=== PATIENT | female | born 1950 | race Caucasian/White ===

== ENCOUNTER 2016-05-18 16:50 | Emergency (ER) | payer OTHER ==
[~2016-05-18] VITALS: Ht 167.6 cm; Wt 135.2 kg
[~2016-05-18 16:50] MED LIST: ALBUTEROL0.09 MG/A1 INH; ATORVASTATIN CA10 MG PO; HYGROTON 25MG T25 MG PO; LASIX20 MG PO; LASIX40 MG PO; LIPITOR20 MG PO; LISINOPRIL10 MG PO; LOPRESSOR 25MG25 MG PO; LOPRESSOR50 MG PO; METFORMIN HCL500 MG PO; MUCINEX ER600 MG PO; PRINIVIL10 MG PO
[2016-05-18] MEDS ORDERED: METFORMIN HCL500 M4 PO (18:10)
[2016-05-18] MEDS ORDERED: METOPROLOL TART50 M1 PO (18:10)
[2016-05-18] MEDS ORDERED: LISINOPRIL20 M1 PO (18:10)
[2016-05-18] MEDS ORDERED: ATORVASTATIN CA20 M1 PO (18:11)
[2016-05-18] MEDS ORDERED: BREO ELLIPTA 21 EACH INH (18:11)
[2016-05-18] MEDS ORDERED: FUROSEMIDE40 M1 PO (18:12)
[2016-05-18] MEDS ORDERED: HYDROCHLOROTHIA25 M1 PO (18:12)
[2016-05-18] MEDS ORDERED: PROAIR HFA8.5 GM INH (18:12)
[2016-05-18] MEDS ORDERED: PRADAXA150 M1 PO (18:12)
--- NOTE | 2016-05-18 18:13 | RADIOLOGY REPORT ---
EXAMINATION: XR PELVIS CLINICAL INFORMATION: Fall. Left hip pain COMPARISON: None TECHNIQUE: AP view of the pelvis. FINDINGS: No fracture of pelvis or left or right hip. There is degenerative joint disease of the hips bilateral with joint space narrowing spurring of acetabula and femoral heads. Sacroiliac joints are normal. IMPRESSION: No fracture of pelvis or hips. 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
--- NOTE | 2016-05-18 18:15 | RADIOLOGY REPORT ---
EXAMINATION: XR SHOULDER, LEFT CLINICAL INFORMATION: Left shoulder pain following fall. COMPARISON: None. TECHNIQUE: AP external rotation, internal rotation and transscapular Y views of the left shoulder. FINDINGS: The bones and soft tissues are normal. No fracture. Glenohumeral and acromioclavicular alignment is anatomic with normal joint space. No abnormal soft tissue calcifications. IMPRESSION: No acute fracture or dislocation of the left shoulder. The left acromioclavicular joint is intact.
--- NOTE | 2016-05-18 18:34 | ED MVC/FALL/TRAUMA COMPLAINT ---
See Addendum History of Present Illness General Chief Complaint: Fall Stated Complaint: BIBA S/P MECHANICAL FALL Source: patient, EMS Exam Limitations: no limitations Vital Signs & Intake/Output Vital Signs & Intake/Output Vital Signs Date Time Temp Pulse Resp B/P Pulse O2 O2 Flow FiO2 Ox Delivery Rate 05/18 1841 97.5 106 160/80 95 05/18 1659 97.5 101 16 168/112 96 Room Air Allergies Coded Allergies: NO KNOWN ALLERGIES (09/19/12) NKA PER ANTIBIOTIC ORDER SHEET OF 09/20/12 - [facility] Reconcile Medications Albuterol Sulfate (Proair Hfa) 90 MCG HFA.AER.AD 2 PUF INH PRN RESPIRATORY ( Reported) Atorvastatin Calcium 20 MG TABLET 1 TAB PO QPM CHOLESTEROL (Reported) Dabigatran Etexilate Mesylate (Pradaxa 150 MG) 150 MG CAPSULE 1 CAP PO BID BLOOD THINNER (Reported) Fluticasone/Vilanterol (Breo Ellipta 200-25 Mcg INH) 200 MCG-25 MCG/DOSE BLST.W.DEV 1 PUFF INH DAILY RESPIRATORY (Reported) Furosemide 40 MG TABLET 1 TAB PO PRN DIURETIC (Reported) Hydrochlorothiazide 25 MG TABLET 1 TAB PO DAILY DIURETIC (Reported) Lisinopril 20 MG TABLET 1 TAB PO BID BP (Reported) Metformin HCl (Metformin HCl ER) 500 MG TAB.ER.24H 2 TAB PO BID PRE-DIABETIC (Reported) Metoprolol Tartrate (Unknown Strength) TABLET (Unknown Dose) PO BID HEART/BP (Reported) Triage Note: BIBA S/P MECHANICAL FALL. PT WAS ON CHAIR, CHAIR BROKE AND PT FELL. C/O LEFT SIDED PAIN. ABLE TO STAND AND PIVOT FROM EMS STRETCHER TO ED STRETCHER. REPORT TAKEN FROM EMS TO MD. PT HYPERTENSIVE, STATES SHE'S BEEN HYPERTENSIVE TODAY AND HAS NOT TAKEN HER DAILY BP MEDS THIS MORNING Triage Nurses Notes Reviewed? yes HPI: Ms. Johnson is 66 yo female w/ PMH of hypertension hyperlipidemia and diabetes presenting to the emergency department after a fall. Patient states she was visiting her mom at the [facility] and was sitting in a chair when the chair broke. Patient fell down landing on her bottom and then rolled to her left hip and left shoulder. She is endorsing left hip pain as well as left shoulder pain. EMS the patient had limited range of motion of that left shoulder unable to raise it above her head. No tingling or numbness. No weakness bilaterally. Patient denies any head trauma or LOC. (SHE VILLAFANA MD) Past History Travel History Traveled to [place] past 21 day No Medical History Any Pertinent Medical History? 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 No (SHE VILLAFANA MD) Review of Systems Review of Systems Constitutional: Reports: see HPI. Eyes: Reports: no symptoms. Ears, Nose, Throat, Mouth: Reports: no symptoms. Respiratory: Reports: no symptoms. Cardiovascular: Reports: no symptoms. Gastrointestinal/Abdominal: Reports: no symptoms. Genitourinary: Reports: no symptoms. Musculoskeletal: Reports: back pain, joint pain, muscle pain. Denies: neck pain. Skin: Reports: no symptoms. Neurological/Psychological: Reports: no symptoms. All Other Systems: Reviewed and Negative (SHE VILLAFANA MD) Physical Exam Physical Exam General Appearance: well developed/nourished, no apparent distress, alert, awake Head: atraumatic, normal appearance Eyes: Bilateral: normal appearance, PERRL, EOMI, normal inspection. Ears, Nose, Throat, Mouth: hearing grossly normal, moist mucous membrane Neck: normal inspection, supple, full range of motion Respiratory: normal breath sounds, chest non-tender, no respiratory distress Cardiovascular: regular rate/rhythm Gastrointestinal: normal bowel sounds, soft, non-tender Back: normal inspection, normal range of motion Extremities: normal range of motion, tenderness to palpation over the left hip. No pelvic instability, tenderness to palpation over superior portion of shoulder. No obvious deformity or dislocation Neurologic/Psych: no motor/sensory deficits, awake, alert, oriented x 3, normal gait, normal mood/affect Skin: intact, normal color, warm/dry Core Measures ACS in differential dx? No Severe Sepsis Present: No Septic Shock Present: No (SHE VILLAFANA MD) Progress Differential Diagnosis: ICH, pelvis injury, fracture dislocation Plan of Care: Patient is a 66-year-old female, well appearing in no distress. Fall from chair. Low mechanism. No head trauma or LOC. Patient endorsing some mild tenderness to palpation of the left hip as well as left. No obvious signs of deformity. Normal range of motion and strength bilaterally of both upper and lower extremities. Basic x-rays to assess for fracture, but unlikely. Head trauma or LOC as well as normal neuro exam highly unlikely patient has intercranial hemorrhage. CT is not indicated at this point in time. He shouldn 't took Advil 400 mg prior to arrival. X-rays are negative. We'll have her continue taking Motrin or Tylenol for the pain and follow-up with her doctor as needed. Patient ambulated out of the ED without difficulties. (SHE VILLAFANA MD) Departure Departure Time of Disposition: 1841 Disposition: HOME OR SELF CARE Condition: Stable Clinical Impression Primary Impression: Fall Qualifiers: Encounter type: initial encounter Qualified Code: W19.XXXA - Unspecified fall, initial encounter Secondary Impressions: Left hip pain Left shoulder pain Qualifiers: Chronicity: acute Qualified Code: M25.512 - Pain in left shoulder Referrals: JUAN CARLOS KIMBALL,TAWANNA Carvalho (PCP/Family) Additional Instructions: Please follow-up with your primary care doctor as needed. You should take Tylenol or Motrin for the pain. Departure Forms: Customer Survey General Discharge Information (SHE VILLAFANA MD) PA/CLAIM AUDITOR Co-Sign Statement Statement: ED Attending supervision documentation- [] I saw and evaluated the patient. I have also reviewed all the pertinent lab results and diagnostic results. I agree with the findings and the plan of care as documented in the PA's/CLAIM AUDITOR's documentation. [X] I have reviewed the ED Record and agree with the PA's/CLAIM AUDITOR's documentation. [] Additions or exceptions (if any) to the PAs/CLAIM AUDITOR's note and plan are summarized below: [] (DARIELA VALDEZ DO
[2016-05-18 18:41] VITALS: BP 160/80
== END 2016-05-18 18:46 ==
LOC: ERH 16:50
DX: M25.552 Pain in left hip (principal); M25.512 Pain in left shoulder
CPT/HCPCS: 72170; 73030-LT

== ENCOUNTER 2017-05-20 15:11 | Inpatient (IN) | payer OTHER ==
[~2017-05-20] VITALS: Ht 167.6 cm; Wt 138.5 kg
[~2017-05-20 15:11] MED LIST changes: +ATORVASTATIN CA20 M1 PO; +FUROSEMIDE40 M1 PO; +HYDROCHLOROTHIA25 M1 PO; +LISINOPRIL20 M1 PO; +METFORMIN HCL500 M4 PO; +METOPROLOL TART50 M1 PO; +PRADAXA150 M1 PO; +PROAIR HFA8.5 GM INH
[2017-05-20 16:28] LABS: ABSOLUTE BASOPHIL COUNT 0 /CUMM (0.0-0.2); ABSOLUTE EOSINOPHIL COUNT 0.1 /CUMM (0.0-0.7); ABSOLUTE GRANULOCYTE CT 5.7 /CUMM (1.4-6.5); ABSOLUTE LYMPH COUNT 0.9 /CUMM (1.2-3.4); ABSOLUTE MONOCYTE COUNT 0.6 /CUMM (0.10-0.60); BASOPHIL % 0.2 % (0.0-2.0); EOSINOPHIL % 1.6 % (0-5); GRANULOCYTE % 77.1 % (42.2-75.2); HEMATOCRIT 40.6 % (37-47); MEAN CORPUSCULAR HGB 25.9 PG (27.0-31.0); MEAN CORPUSCULAR HGB CONC 31.4 G/DL (33.0-37.0); MEAN CORPUSCULAR VOLUME 82.6 FL (81.0-99.0); MEAN PLATELET VOLUME 7.7 FL (7.4-10.4); PLATELET COUNT 278 /CUMM (130-400); RED BLOOD CELL CT 4.92 /CUMM (4.20-5.40); WHITE BLOOD CELL COUNT 7.3 /CUMM (4.8-10.8)
--- NOTE | 2017-05-20 16:33 | RADIOLOGY REPORT ---
EXAMINATION: XR PORTABLE CHEST CLINICAL INFORMATION: Shortness of breath COMPARISON: 11/30/2014 CT scan TECHNIQUE: Portable frontal view of the chest was obtained. FINDINGS: Suboptimal exam due to portable x-ray and patient's body habitus. There is moderate cardiomegaly. Pulmonary venous congestion also noted. Mild increased interstitial markings in the lower lungs can represent interstitial edema. Evaluation for pleural effusion is limited. IMPRESSION: Cardiomegaly, pulmonary venous congestion and interstitial edema in lower lungs.
[2017-05-20 16:38] LABS: PT 14.1 SEC (9.4-12.5); PTT 34 SEC (25-37)
--- NOTE | 2017-05-20 16:38 | ED GENERAL ADULT ---
History of Present Illness General Chief Complaint: Laceration Procedure Stated Complaint: BIBA FOR UNCONTROLLABLE BLEEDING R FOOT Source: patient, family Exam Limitations: no limitations Allergies Coded Allergies: NO KNOWN ALLERGIES (09/19/12) NKA PER ANTIBIOTIC ORDER SHEET OF 09/20/12 - [facility] Triage Note: PT TO ED BY AMBULANCE S/P SUSTAINING LAC TO DORSAL ASPECT OF RIGHT FOOT. PT STATES SHE WAS A USING A HOME PEDICURE "[facility]HELLE" AND CREATED A "PINPRICK" SIZE LAC THAT BEGAN SPURTING BLOOD FOR APPROX 5 MINUTES. PT TAKES PRADAXA Triage Nurses Notes Reviewed? yes Onset: Abrupt Duration: day(s): (1), constant, continues in ED, getting worse Timing: single episode today Injury Environment: home Severity: moderate, severe No Modifying Factors: none LMP (ages 10-50): unknown : No Patient currently breastfeeds: No HPI: 67-year-old female past medical history of atrial fibrillation on PRADAXA, obesity, hypertension, diabetes mellitus for evaluation of a bleeding right foot wound. Patient states that she was removing a callus from her foot with a callous michelle when she went over a superficial vein causing it to bleed. She was unable stop the bleeding so she called 911. She is taking anticoagulants. No dizziness or lightheadedness no chest pain. Patient does know that she has had shortness of breath over the past several weeks worse on exertion. When she walks she feels like she also gets dizzy and lightheaded. No chest pain hemoptysis. She also notes some lower extremity edema bilaterally. She does take 40 mg of Lasix daily at home. She also notes sometimes any shortness of breath while talking.no fevers. Nausea vomiting diarrhea and no abdominal pain. (Tomas SALGADO,Vance) Vital Signs & Intake/Output Vital Signs & Intake/Output Vital Signs Date Time Temp Pulse Resp B/P B/P Pulse O2 O2 Flow FiO2 Mean Ox Delivery Rate 05/20 1734 97.7 96 18 115/85 98 Room Air 05/20 1517 97.6 112 20 145/108 96 Room Air Reconcile Medications Albuterol Sulfate (Proair Hfa) 90 MCG HFA.AER.AD 2 PUF INH PRN RESPIRATORY ( Reported) Atorvastatin Calcium 20 MG TABLET 1 TAB PO QPM CHOLESTEROL (Reported) Ciclopirox Olamine (Ciclopirox) 0.77 % CREAM..G. 1 OLGA TOP BID SKIN (Reported ) apply to affected area(s) Dabigatran Etexilate Mesylate (Pradaxa 150 MG) 150 MG CAPSULE 1 CAP PO BID BLOOD THINNER (Reported) Fluticasone/Vilanterol (Breo Ellipta 200-25 Mcg INH) 200 MCG-25 MCG/DOSE BLST.W.DEV 1 PUFF INH DAILY RESPIRATORY (Reported) Furosemide 40 MG TABLET 1 TAB PO PRN DIURETIC (Reported) Hydrochlorothiazide 25 MG TABLET 1 TAB PO DAILY DIURETIC (Reported) Hydrocortisone 2.5 % CREAM..G. 1 OLGA TOP BID ITCHING (Reported) apply to affected area(s) Lisinopril 20 MG TABLET 1 TAB PO BID BP (Reported) Metformin HCl (Metformin HCl ER) 500 MG TAB.ER.24H 2 TAB PO BID PRE-DIABETIC (Reported) Metoprolol Tartrate (Unknown Strength) TABLET (Unknown Dose) PO BID HEART/BP (Reported) Mv-Min/Vit C/Glu/Guadalupe HCl/Hc124 (Airborne Effervescent Tablet) 1,000 MG-50 MG TABLET.EFF 1 TAB PO DAILY SUPPLEMENT (Reported) Sodium Fluoride (Sf 5000 Plus) 1.1 % CREAM..G. 1 OLGA PO BID TEETH (Reported) (Radha KIMBALL,Jarvis Aldana) Past History Travel History Traveled to [place] past 21 day No Medical History Any Pertinent Medical History? 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 No (Vance Watson) Review of Systems Review of Systems Constitutional: Reports: no symptoms. EENTM: Reports: no symptoms. Respiratory: Reports: see HPI, short of breath. Cardiovascular: Reports: peripheral edema. GI: Reports: no symptoms. Genitourinary: Reports: no symptoms. Musculoskeletal: Reports: no symptoms. Skin: Reports: no symptoms. Neurological/Psychological: Reports: no symptoms. Hematologic/Endocrine: Reports: no symptoms. Immunologic/Allergic: Reports: no symptoms. All Other Systems: Reviewed and Negative (Vance Watson) Physical Exam Physical Exam General Appearance: well developed/nourished, no apparent distress, alert, awake , obese Head: atraumatic, normal appearance Eyes: Bilateral: normal appearance, PERRL, EOMI. Ears, Nose, Throat: normal pharynx, normal ENT inspection, hearing grossly normal Neck: normal inspection, supple, full range of motion Respiratory: normal breath sounds, chest non-tender, no respiratory distress, lungs clear Cardiovascular: regular rate/rhythm, normal peripheral pulses Peripheral Pulses: 2+ radial (R), 2+ radial (L) Gastrointestinal: soft, non-tender Back: normal inspection, normal range of motion, no vertebral tenderness Extremities: there is bilateral nonpitting lower extremity edema. On the right lower extremity there are multiple ulcerated wounds with some surrounding erythema and warmth. No focal fluctuant areas or discharge. No tenderness to palpation., the right lower foot has a pinhole size laceration over the dorsum small amount of active bleeding. No hematoma Neurologic/Psych: no motor/sensory deficits, awake, alert, oriented x 3, normal gait (becomes dyspneic) Skin: intact, normal color, warm/dry Lymphatic: no anterior cervical rashmi Core Measures ACS in differential dx? No CVA/TIA Diagnosis: No Sepsis Present: No Sepsis Focused Exam Completed? No (Vance Watson) Progress Differential Diagnoses I considered the following diagnoses in my evaluation of the patient: [CHF exacerbation, PE, COPD exacerbation, acute coronary syndrome, pneumonia, coagulopathy] Diagnostic Imaging: Viewed by Me: Radiology Read. Discussed w/RAD: Radiology Read. CXR Impression: PATIENT: NISREEN MIRANDA PRESENT AGE: 67 PATIENT ACCOUNT NO: [id number] : 52 LOCATION: [facility] ORDERING PHYSICIAN: Vance SALGADO SERVICE DATE: 05/20/17-4170 EXAM TYPE: RAD - XRY-PORTABLE CHEST XRAY EXAMINATION: XR PORTABLE CHEST CLINICAL INFORMATION: Shortness of breath COMPARISON: 11/30/2014 CT scan TECHNIQUE: Portable frontal view of the chest was obtained. FINDINGS: Suboptimal exam due to portable x-ray and patient' s body habitus. There is moderate cardiomegaly. Pulmonary venous congestion also noted. Mild increased interstitial markings in the lower lungs can represent interstitial edema. Evaluation for pleural effusion is limited. IMPRESSION: Cardiomegaly, pulmonary venous congestion and interstitial edema in lower lungs. DICTATED BY: Nila Lyons MD DATE/TIME DICTATED:05/20/171627 LAND SURVEY TECHNICIAN:ESPERANZA DATE/TIME TRANSCRIBED:05/20/171627 CONFIDENTIAL, DO NOT COPY WITHOUT APPROPRIATE AUTHORIZATION. <Electronically signed in Other Vendor System> SIGNED BY: Nila Lyons MD 05/20/17 1633 Initial ED EKG: AFIB (RATE 108), nonspecific T-wave out of maladies lateral leads, poor (prolonged QT right ventricular hypertrophy (Tomas SALGADO,Vance) Plan of Care: Orders Procedure Date/time Status Consistent Carbohydrate 2 05/21 B Active OXYGEN SETUP (GEN) 05/20 1949 Active Saline Lock 05/20 1949 Active Admit to inpatient 05/20 1950 Active Vital Signs 05/20 1950 Active Activity/Ambulation 05/20 1949 Active Code Status 05/20 1950 Active Villalobos, Insertion/Removal/Asses 05/20 181 Active CULTURE,URINE 05/20 1812 Active Add-on Test (ER Only) 05/20 1802 Active Add-on Test (ER Only) 05/20 1638 Active D-DIMER 05/20 1616 Complete B-TYPE NATRIURETIC PEP (BNP) 05/20 1616 Complete TROPONIN LEVEL 05/20 1558 Complete PARTIAL THROMBOPLASTIN TIME 05/20 1558 Complete PROTHROMBIN TIME 05/20 1558 Complete COMPREHENSIVE METABOLIC PANEL 05/20 1558 Complete CBC WITHOUT DIFFERENTIAL 05/20 1558 Complete EKG 05/20 1558 Active Laboratory Tests 05/20/17 1616: Anion Gap 9, Estimated GFR > 60, BUN/Creatinine Ratio 16.7, Glucose 105 H, Calcium 9.3, Total Bilirubin 0.8, AST 18, ALT 28, Alkaline Phosphatase 79, Troponin I < 0.01, Fmn-S-Ruylwtsyckh Pept 1900 H, Total Protein 7.2, Albumin 3.7, Globulin 3.5, Albumin/Globulin Ratio 1.1, PT 14.1 H, INR 1.29 H, APTT 34, D-Dimer High Sensitivty 261 H, CBC w Diff NO MAN DIFF REQ, RBC 4.92, MCV 82.6, MCH 25.9 L, MCHC 31.4 L, RDW 18.0 H, MPV 7.7, Gran % 77.1 H, Lymphocytes % 12.4 L, Monocytes % 8.7, Eosinophils % 1.6, Basophils % 0.2, Absolute Granulocytes 5.7, Absolute Lymphocytes 0.9 L, Absolute Monocytes 0.6, Absolute Eosinophils 0.1, Absolute Basophils 0 Microbiology 05/20 1928 URINE ROUT: Urine Culture - RECD Patient seen and evaluated. She was coming in with a complaint of a uncontrolled bleeding right foot wound. She does have a pinprick size small laceration to the dorsum of the foot. Bleeding was controlled with Surgicel and pressure dressing. Patient appears dyspneic while talking. No signs of cyanosis or hypoxia at rest. She does not require oxygen. Basic labs EKG chest x-ray obtained patient has a slight tachycardia in the 1 teens additionally she has some interstitial edema and vascular congestion and an elevated BNP. Suspect this may be a CHF exacerbation. 60 mg of Lasix ordered a d-dimer added on. She was ambulated in the emergency department and became visibly dyspneic. She desaturated to 85% on room air. She normalizes at rest. She will require admission to the hospital for further evaluation and treatment. D-dimer is negative. (Vance Watson) (Radha KIMBALL,Jarvis Aldana) Departure Departure Disposition: STILL A PATIENT Condition: Stable Clinical Impression Primary Impression: CHF (congestive heart failure) Qualifiers: Heart failure type: unspecified Heart failure chronicity: acute Qualified Code: I50.9 - Heart failure, unspecified Referrals: Prashanth KIMBALL,Wolf Carvalho (PCP/Family) Departure Forms: Customer Survey General Discharge Information Admission Note Spoke With: Los KIMBALL,Joyce Documentation of Exam: Documentation of any treatments & extenuating circumstances including Concerns Regarding Discharge (functional status, medication knowledge or non-compliance, living conditions, etc.) that warrant an admission rather than observation: [ Patient desaturated to 85% on room air while ambulating. She'll require IV diuresis, serial labs, echocardiogram, cardiology consult, telemetry, serial EKGs, medication adjustment] (Vance Watson) PA/PROCEDURES TECH Co-Sign Statement Statement: ED Attending supervision documentation- [X] I saw and evaluated the patient. I have also reviewed all the pertinent lab results and diagnostic results. I agree with the findings and the plan of care as documented in the PA's/PROCEDURES TECH's documentation. Patient presents for evaluation of uncontrolled bleeding as a result of an accidental injury. During emergency department stay was noted patient appeared dyspneic on exertion. Physical examination reveals a comfortable appearing woman (while at rest) in no acute respiratory distress. No active bleeding from patient's wound. [] I have reviewed the ED Record and agree with the PA's/PROCEDURES TECH's documentation. [] Additions or exceptions (if any) to the PAs/PROCEDURES TECH's note and plan are summarized below: [] (Radha KIMBALL,Jarvis Aldana) Critical Care Note Critical Care Note Critical Care Time: non-applicable (Vance Watson)
[2017-05-20] MEDS ORDERED: HYDROCORTISO453.6 G2 TOP (18:15)
[2017-05-20] MEDS ORDERED: CICLOPIROX15 GM TOP (18:16)
[2017-05-20] MEDS ORDERED: SF 5000 PLUS51 GM PO (18:16)
[2017-05-20] MEDS ORDERED: AIRBORNE EFFER1 EACH PO (18:19)
--- NOTE | 2017-05-20 19:59 | History & Physical ---
Brendon KIMBALL,[facility] 05/20/171957: General Information and HPI MD Statement: I have seen and personally examined NISREEN JOHNSON and documented this H&P. The patient is a 67 year old F who presented with a patient stated chief complaint of [increased bleeding from the right foot]. Source of Information: patient, family Exam Limitations: no limitations History of Present Illness: 67 yo F with PMH of A.fib on Pradaxa, DM, MUSHTAQ, hypertension presented to the ED with complains of bleeding from her right foot. According to the patient, earlier this afternoon she was removing a callus from her right foot using a callous jewelry designer and accidentally nicked a vein in her foot resulting in profuse bleeding. She tried some baby wipes to control the bleeding but was unsuccessful and hence she called 911 and was brought to the ED. In the ED the patient was found to have desaturated in the 80s with ambulation. The patient states that she has a baseline shortness of breath for many years now. She experiences exertional shortness of breath while dressing or walking to the bathroom from her bed. Per brother her symptoms have significantly worsened especially in the past two months. Has gained around 15-20lbs over the past 3 months. States she takes Lasix when she's home but skips it when she has to go outside. The patient also mentions that she was diagnosed with MUSHTAQ 5 years ago in [place] and again two years ago by Dr Maher in [place]. She does not use CPAP due to some insurance issues. Follows Dr Sahu (cardiology). Last saw him around 6 weeks ago and HCTZ was added for LLE. Allergies/Medications Allergies: Coded Allergies: NO KNOWN ALLERGIES (09/19/12) NKA PER ANTIBIOTIC ORDER SHEET OF 09/20/12 - [facility] Home Med list Albuterol Sulfate (Proair Hfa) 90 MCG HFA.AER.AD 2 PUF INH PRN RESPIRATORY ( Reported) Atorvastatin Calcium 20 MG TABLET 1 TAB PO QPM CHOLESTEROL (Reported) Ciclopirox Olamine (Ciclopirox) 0.77 % CREAM..G. 1 OLGA TOP BID SKIN (Reported ) apply to affected area(s) Dabigatran Etexilate Mesylate (Pradaxa 150 MG) 150 MG CAPSULE 1 CAP PO BID BLOOD THINNER (Reported) Furosemide 40 MG TABLET 1 TAB PO PRN DIURETIC (Reported) Hydrochlorothiazide 25 MG TABLET 1 TAB PO DAILY DIURETIC (Reported) Hydrocortisone 2.5 % CREAM..G. 1 OLGA TOP BID ITCHING (Reported) apply to affected area(s) Lisinopril 20 MG TABLET 1 TAB PO BID BP (Reported) Metformin HCl (Metformin HCl ER) 500 MG TAB.ER.24H 2 TAB PO BID PRE-DIABETIC (Reported) Metoprolol Tartrate (Unknown Strength) TABLET (Unknown Dose) PO BID HEART/BP (Reported) Mv-Min/Vit C/Glu/Guadalupe HCl/Hc124 (Airborne Effervescent Tablet) 1,000 MG-50 MG TABLET.EFF 1 TAB PO DAILY SUPPLEMENT (Reported) Sodium Fluoride (Sf 5000 Plus) 1.1 % CREAM..G. 1 OLGA PO BID TEETH (Reported) Past History Travel History Traveled to [place] past 21 day No Medical History Neurological: NONE EENT: NONE Cardiovascular: hypertension, ELEVATED CHOLESTEROL Respiratory: NONE Gastrointestinal: NONE Hepatic: NONE Renal: NONE Musculoskeletal: NONE Psychiatric: NONE Endocrine: diabetes Blood Disorders: NONE Cancer(s): NONE SLIPMAN/Reproductive: NONE History of MRSA: No History of VRE: No History of CDIFF: No Surgical History Surgical History: sinus surgery, Lasix eye surgery Past Family/Social History Family History Relations & Conditions if any MOTHER Cardiac edema Psychosocial History Primary Language: Lithuanian ETOH Use: denies use Illicit Drug Use: denies illicit drug use Review of Systems Review of Systems Constitutional: Reports: chills. Denies: fever. EENTM: Reports: no symptoms. Cardiovascular: Reports: peripheral edema. Denies: chest pain, palpitations. Respiratory: Reports: cough, short of breath, wheezing. GI: Reports: constipation. Denies: abdominal pain. Genitourinary: Reports: no symptoms. Musculoskeletal: Denies: joint pain. Skin: Reports: no symptoms. Neurological/Psychological: Reports: no symptoms. Hematologic/Endocrine: Reports: no symptoms. Exam & Diagnostic Data Last 24 Hrs of Vital Signs/I&O Vital Signs Date Time Temp Pulse Resp B/P B/P Pulse O2 O2 Flow FiO2 Mean Ox Delivery Rate 05/20 1734 97.7 96 18 115/85 98 Room Air 05/20 1517 97.6 112 20 145/108 96 Room Air Intake & Output 05/20 1600 05/20 0800 05/20 0000 Intake Total Output Total Balance Patient 320 lb Weight Weight Reported by Patient Measurement Method Physical Exam General Appearance Alert, Oriented X3, Cooperative, No Acute Distress Skin rash under breasts, wounds on legs. Skin Temp/Moisture Exam: Warm/Dry Sepsis Skin Exam (color): Normal for Ethnicity HEENT Atraumatic Cardiovascular Normal S1, Normal S2, No Murmurs, elevated JVD Lungs Normal Air Movement Abdomen Soft, No Tenderness Neurological Normal Speech Extremities b/l lower extremity edema, erythema Diagnostic Data EKG Results A.jailyn, rate 108, QTc 494, no ST segment changes, narrow QRS, no pathological Q waves. CXR Results Cardiomegaly, pulmonary venous congestion and interstitial edema in lower lungs. Assessment/Plan Assessment: 67 yo F with PMH of Ambrocio on Pradaxa, DM, MUSHTAQ presented to the ED with complains of increased bleeding from her foot. Assessment: 1. Acute CHF Exacerbation 2. Lower Extremity Edema 3. History of MUSHTAQ non compliant on CPAP 4. Prolonged QTc of 494 5. History of A.fib on Pradaxa 6. History of Diabetes Plan: * Admit to telemetry * Diuresis with IV Lasix 40mg daily for now. * Strict I's and O's. * Oxygen supplementation if needed. * TRC/nebs as needed. Currently refuses to be on the CPAP * Cardiology consult * r/o ACS with serial trops and EKGs * Echocardiogram to assess LVEF and for cardiomyopathy * ABG to assess for hypercarbia * Avoid QTc prolonging agents. * Check TSH, FT4. Patient complains of cold intolerance, weight gain and increased somnolence. * Wound consult * Continue all home meds except metformin. She can continue her home antifungals for her tinea infection present under breast. Our pharmacy does not have Cicloporix currently and this has been substituted with ketoconazole cream. * She has had two sleep studies in the past. Obtain most recent pulm records from Dr Maher in [place]. * Insulin SS with Accucheks. * PT eval * Diet: Heart Healthy. Patient has requested for a nutrition consult * DVT Prophylaxis: On Pradaxa * Code: Full Code As Ranked By This Provider Problem List: 1. CHF (congestive heart failure) Qualifiers Heart failure type: unspecified Heart failure chronicity: acute Qualified Code: I50.9 - Heart failure, unspecified Core Measures/Misc (10/22) Acute Coronary Syndrome ACS Diagnosis: No Congestive Heart Failure Congestive Heart Failure Diagnosis Yes Last Known EF % 45 Cerebrovascular Accident CVA/TIA Diagnosis: No VTE (View Protocol) VTE Risk Factors Age>40 No Mechanical VTE Prophylaxis d/t N/A MechProphylax Ordered No VTE Pharm Prophylaxis d/t NA PharmProphylax ordered Sepsis (View protocol) Sepsis Present: No BenjaminAfaf 05/20/17 2220: Resident Review Statement Resident Statement: examined this patient, discussed with grad intern, agreed with grad intern, discussed with family, reviewed EMR data (avail), discussed with nursing , discussed with case mgmt, reviewed images Other Findings: Mrs. Johnson is a 67 yo morbidly obese lady with PMHx. of A.fib on Pradaxa, obesity , HTN, DM, MUSHTAQ noncomplaint with cPAP, presented to ED with a c/o right foot laceration and a concern of worsening SOB. Detailed Hx. as above On examination she was noted to be in moderate distress, couldn't complete whole sentence +ve JVP Heart: Irregular pulse, S1, S2 no added sound appreciated Lung: It's difficult to hear given her body habit, no wheezing was appreciated, decrease air entry B/L Extrimities: B/L LE skin changes (Discoloration, old skin opening), +3 pitting edema, pulse intact Right toes: covered with clean guaz Skin: Redness under both breast Labs pertinent for: Na: 148, Co2: 31, Glucose: 105, pro-BNP: 1900 Trops negative. D-dimer: 261 CXR: CARDIOMEGALLY, PULMONARY VENOUS CONGESTION AND INTERSTITIAL EDEMA IN LOWER LUNG Assessment: #CHF exacerbation #MUSHTAQ not complaint with cPAP #A.fib on Pradaxa #Pulmonary HTN #Skin fungal infection #?LE venous insufficeincy #Right foot laceration #Hx. of HTN, DM Plan: * Will admitt the patient to telemetry floor * Will continue Lasix 40mg daily from tomorrow (She already received 60mg IV at ED) * Will trend EKG/Troponin * Cardiology consult with Dr. Sahu group * Pulmonoloy consult * TRC/Nebs * Will check ABG * Insulin sliding scale/ Accucheck * [facility] * Pulmonology consult * Wound consult * Nutrition consult (Patient request) * Will continue her home medications (Lisinopril, metoprolol tetrate, Hctz, Atorvastatin) DVT ppx: PRADAXA Full code Los KIMBALL, [facility] 05/20/17 2240: Attending MD Review Statement Attending Statement Attending MD Statement: examined this patient, discuss w/resident/PA/SECOND FACING BASTER, agreed w/resident/PA/SECOND FACING BASTER, discussed with family, reviewed images, amended to note Attending Assessment/Plan: 67 yo morbidly obese F with h/o HTN, T2DM, Afib on Pradaxa, chronic HfrEF, MUSHTAQ noncompliant with CPAP, ?asthma, presented to the ER for evaluation of bleeding from the dorsum of her foot after she tried to use a callus michelle. In the ER, bleeding was controlled with surgicel and pressure dressing. However, patient was notably dyspneic and dropped her sats to 88% on RA on ambulation, hence further evaluation was done. Patient has chronic baseline dyspnea, but according to family, dyspnea has gradually progressed over past 3-6 months, worse on exertion (taking few steps at home) and even during a normal conversation. Patient reports orthopnea and PND. She denies cough, fever, chills, chest pain or palpitations. Patient is noncompliant with lasix, has not taken it for over 2 weeks. She takes it only if she stays home and has no commitments of going out as she has to urinate frequently if she takes the lasix. She reports weight gain of 15 lbs over 3 months, appetite is good, drinks a lot of diet soda and ice tea. Reports urinating less than usual. She has chronic lower extremity edema and this has increased, along with increase in abdominal girth. Patient does not follow up at a CHF clinic. She follows with Dr. Sahu (Cardio). Please note, patient is on HCTZ (as per PCP) and Lasix (as per Cardio) both are not new meds for the patient. She is supposed to use her CPAP machine but is unable to tolerate it and machine was pricey despite insurance so she stopped using it. She was seeing Dr. Cox (Pulm at [place]) who diagnosed her with asthma but patient did not follow up since. Vitals: afebrile, HR 90-110's, BP 143/96, sats 96% RA --> 88% RA on ambulation, 87-88% RA while sleeping placed on 2L. Exam: morbidly obese, moderate respiratory distress, unable to complete sentence , using accessory muscles, MMM, JVD+, Chest b/l reduced air entry and few left basilar crackles, no wheeze or rhonchi, Heart S1S2 irregularly irregular, systolic murmur+, Abd soft, diffuse lower abdominal wall edema, non tender. LE: b/l 3++ pitting pedal edema extending up into the thigh and abdomen, chronic venous stasis skin changes with chronic wounds, no evidence of cellulitis. Peripheral pulse+. Fungal rash noted under bilateral breasts (right side is healing, left side is active and erythematous). Labs: no leukocytosis, D-dimer 261, Na 148, bicarb 31, glucose 105, trop neg, proBNP 1900, TSH and free T4 normal. CXR: cardiomegaly, pulmonary venous congestion and interstitial edema in lower lungs. EKG: afib @ 108, Qtc 494. Echo (2014): EF 45-50%, mild left ventricular dilatation, mild to moderate MR, mild TR, RVSP 49 mmHg. Assessment and plan: 1. Acute hypoxic respiratory failure seems multifactorial from a combination of heart failure, pulmonary hypertension, sleep apnea and possible OHS. 2. Acute exacerbation of chronic HfrEF 2/2 medication and dietary noncompliance 3. MUSHTAQ noncompliant with CPAP 4. Pulmonary hypertension, mild to moderate mitral regurgitation 5. Possible underlying Obesity hypoventilation syndrome 6. Chronic Afib on pradaxa 7. Traumatic bleeding while on anticoagulants bleeding controlled 8. Type 2 diabetes and essential hypertension - Admit to Telemetry - TRC nebs - Daily weights - Strict I/O's, hopkins placed in ER - IV lasix 60 mg given in ER, continue 40 mg daily from AM - Obtain echocardiogram - Serial EKG and troponin to rule out ACS - Cardio consult (Dr. Sahu) - Ensure med compliance - Nutrition consult - Wound consult - Obtain baseline ABG - Obtain records (PFT, sleep study) from Dr. Cox (Pulm at [place]) - Counseled about need for CPAP use, patient will need non-urgent Pulm consult ( Dr. Feliz) - Thyroid functions are normal. - Continue metoprolol for rate control and pradaxa - Diabetes management hold metformin. - PT eval - Continue cyclopirox and hydrocortisone for local tinea fungal infection under bilateral breast as prescribed by Commercial Decorator DVT ppx Pradaxa. Full code.
--- NOTE | 2017-05-20 22:41 | Admission Certification ---
Admission Certification Certification Statement - As attending physician, I certify that at the time of - admission, based on clinical presentation, severity of - symptoms, need for further diagnostic testing and - therapeutic interventions, and risk of adverse outcomes - without in-hospital treatment, in my clinical assessment, - this patient requires an acute hospital stay for a minimum - of two nights or longer. I have also considered psychsocial - factors such as support system, advanced age, financial - issues, cognitive issues, and failed out-patient treatments, - past re-admission history, safety of patient, and lack of - compliance as applicable. Specific rationale supporting this admission is: Acute hypoxic respiratory failure, acute on chronic CHF, pulmonary hypertension and sleep apnea non compliant with CPAP.
[2017-05-21 05:48] LABS: ABSOLUTE BASOPHIL COUNT 0 /CUMM (0.0-0.2); ABSOLUTE EOSINOPHIL COUNT 0.1 /CUMM (0.0-0.7); ABSOLUTE LYMPH COUNT 0.9 /CUMM (1.2-3.4); ABSOLUTE MONOCYTE COUNT 0.7 /CUMM (0.10-0.60); BASOPHIL % 0.3 % (0.0-2.0); EOSINOPHIL % 1.1 % (0-5); HEMATOCRIT 37.7 % (37-47); MEAN CORPUSCULAR HGB 25.7 PG (27.0-31.0); MEAN CORPUSCULAR HGB CONC 31.3 G/DL (33.0-37.0); MEAN CORPUSCULAR VOLUME 82.1 FL (81.0-99.0); MEAN PLATELET VOLUME 7.9 FL (7.4-10.4); PLATELET COUNT 276 /CUMM (130-400); RED BLOOD CELL CT 4.59 /CUMM (4.20-5.40); WHITE BLOOD CELL COUNT 7.8 /CUMM (4.8-10.8)
[2017-05-21 07:00] VITALS: BP 104/60
--- NOTE | 2017-05-21 07:38 | PN- Housestaff ---
Marvin Castro 05/21/17 0737: Subjective Follow-up For: 1. Acute hypoxic respiratory failure seems multifactorial from a combination of heart failure, pulmonary hypertension, sleep apnea and possible OHS. 2. Acute exacerbation of chronic HfrEF 2/2 medication and dietary noncompliance 3. MUSHTAQ noncompliant with CPAP 4. Pulmonary hypertension, mild to moderate mitral regurgitation 5. Possible underlying Obesity hypoventilation syndrome 6. Chronic Afib on pradaxa 7. Traumatic bleeding while on anticoagulants bleeding controlled 8. Type 2 diabetes and essential hypertension Complaints: pain scale (0-10) Tele-Events Since Last Visit: Telemetry monitoring uneventful Atrial fibrillation rate under control Subjective: She was seen and examined this morning. She is alert awake and oriented 3. No acute events noticed overnight. Patient continues to report shortness of breath even with minimal exertion. Continues to report orthopnea and paroxysmal nocturnal dyspnea. She reports being gaining weight. Denies any fever, chills, chest pain or pressure, palpitations. Continues to report lower extremity edema Vitals were within normal limits afebrile, heart rate 96, respiratory rate 18, blood pressure 115/60, saturating at 98 on 2 L oxygen. Review of Systems Constitutional: Reports: see HPI. Objective Last 24 Hrs of Vital Signs/I&O Vital Signs Date Time Temp Pulse Resp B/P B/P Pulse O2 O2 Flow FiO2 Mean Ox Delivery Rate 05/21 1218 101 102/78 05/21 1217 107 102/78 05/21 0757 95 Nasal 2.0L Cannula 05/21 0529 97.6 98 22 108/60 97 Room Air 05/21 0154 115 138/76 05/21 0154 97.8 115 18 138/76 98 Nasal 2.0L Cannula 05/21 0126 Nasal 2.0L Cannula 05/20 2256 98.0 112 17 149/79 94 Room Air 05/20 2133 98.1 110 18 143/96 96 Room Air 05/20 1734 97.7 96 18 115/85 98 Room Air 05/20 1517 97.6 112 20 145/108 96 Room Air Intake & Output 05/21 1600 05/21 0800 05/21 0000 Intake Total Output Total 720 3100 Balance -720 -3100 Output, Urine 720 3100 Patient 152.407 kg Weight Physical Exam General Appearance: Alert, Oriented X3 Other Physical Findings: General Appearance Alert, Oriented X3, Cooperative, No Acute Distress morbidly obese, moderate respiratory distress, unable to complete sentence, using accessory muscles, MMM, JVD+, Chest b/l reduced air entry and few left basilar crackles, no wheeze or rhonchi, Heart S1S2 irregularly irregular, systolic murmur+, Abd soft, diffuse lower abdominal wall edema, non tender. LE: b/l 3++ pitting pedal edema extending up into the thigh and abdomen, chronic venous stasis skin changes with chronic wounds, no evidence of cellulitis. Peripheral pulse+. Fungal rash noted under bilateral breasts (right side is healing, left side is active and erythematous). Current Medications: Current Medications Sig/Dolly Start time Last Medication Dose Route Stop Time Status Admin Acetaminophen 650 MG Q6P PRN 05/20 2130 AC PO Albuterol Sulfate 2 PUF Q4P PRN 05/21 0900 AC INH Atorvastatin Calcium 20 MG QPM 05/21 2100 AC PO Dabigatran 150 MG BID 05/21 0900 AC 05/21 PO 1218 Dabigatran 150 MG ONCE ONE 05/21 0130 DC 05/21 PO 05/21 0131 0154 Furosemide 40 MG DAILY 05/21 0900 AC 05/21 IV 0818 Furosemide 0 .STK-MED ONE 05/20 1754 DC IV Furosemide 60 MG ONCE ONE 05/20 1730 DC 05/20 IV 05/20 1731 1940 Hydrochlorothiazide 25 MG DAILY 05/21 0900 AC 05/21 PO 1217 Hydrocortisone 1 OLGA BID 05/21 0900 CAN TOP Insulin Aspart 0 TIDAC 05/21 1200 AC 05/21 SC 1223 Ketoconazole 1 OLGA BID 05/21 0900 AC TOP Lisinopril 20 MG BID 05/21 0900 AC 05/21 PO 1217 Metoprolol Tartrate 100 MG BID 05/21 0900 AC 05/21 PO 1218 Metoprolol Tartrate 0 .STK-MED ONE 05/21 0144 DC PO Metoprolol Tartrate 100 MG ONCE ONE 05/21 0130 DC 05/21 PO 05/21 0131 0154 Non-Formulary 0 SEE ADMIN CRITERIA 05/21 0130 CAN Medication ANY Nystatin 1 OLGA BID 05/21 0900 CAN TOP Nystatin 1 OLGA BID 05/20 2141 DC 05/20 TOP 2345 Assessment/Plan Assessment: 67 yo morbidly obese F with h/o HTN, T2DM, Afib on Pradaxa, chronic HfrEF, MUSHTAQ noncompliant with CPAP, ?asthma, presented to the ER for evaluation of bleeding from the dorsum of her foot after she tried to use a callus michelle. In the ER, bleeding was controlled with surgicel and pressure dressing. However, patient was notably dyspneic and dropped her sats to 88% on RA on ambulation, hence further evaluation was done. she was admitted to ICU as tele hold for management of acute on chronic heart failure. Vitals: afebrile, HR 90-110's, BP 143/96, sats 96% RA --> 88% RA on ambulation, 87-88% RA while sleeping placed on 2L. Labs: no leukocytosis, D-dimer 261, Na 148, bicarb 31, glucose 105, trop neg, proBNP 1900, TSH and free T4 normal. CXR: cardiomegaly, pulmonary venous congestion and interstitial edema in lower lungs. EKG: afib @ 108, Qtc 494. Echo (2015): EF 45-50%, mild left ventricular dilatation, mild to moderate MR, mild TR, RVSP 49 mmHg. Assessment and plan: 1. Acute hypoxic respiratory failure seems multifactorial from a combination of heart failure, pulmonary hypertension, sleep apnea and possible OHS. 2. Acute exacerbation of chronic HfrEF 2/2 medication and dietary noncompliance 3. MUSHTAQ noncompliant with CPAP 4. Pulmonary hypertension, mild to moderate mitral regurgitation 5. Possible underlying Obesity hypoventilation syndrome 6. Chronic Afib on pradaxa 7. Traumatic bleeding while on anticoagulants bleeding controlled 8. Type 2 diabetes and essential hypertension -------- 1. Acute exacerbation of chronic heart failure with reduced ejection fraction she has history of heart failure with reduced ejection fraction. Patient is supposed to take Lasix 40 mg and hydrochlorothiazide 25 daily. However patient has not been taking her medications for last 2 weeks. Patient also reports weight gain for last few months from dietary noncompliance. Patient presented with worsening shortness of breath, orthopnea, paroxysmal nocturnal dyspnea, weight gain, hypoxic requiring oxygen supplementation. CXR showed cardiomegaly, pulmonary venous congestion and interstitial edema in lower lungs. Acute exacerbation of chronic heart failure from dietary noncompliance, medication noncompliance. * Admit to telemetry * Continuous telemetry monitoring * Monitor vitals every shift * Started IV Lasix 40 daily Will switch to oral Lasix tomorrow * Daily ins and outs * Strict weights * 2 g sodium restriction diet * Echocardiogram * Assembled Wood Products Repairer on board * Continue Lasix * Continue hydrochlorothiazide 25 mg daily * Monitor electrolytes and replete accordingly * Monitor BUN and creatinine * Ruled out ACS with serial troponin and EKG Acute hypoxic respiratory failure seems multifactorial from a combination of heart failure, pulmonary hypertension, sleep apnea and possible OHS. patient was notably dyspneic and dropped her sats to 88% on RA on ambulation, hence further evaluation was done. Patient has chronic baseline dyspnea, but according to family, dyspnea has gradually progressed over past 3-6 months, worse on exertion (taking few steps at home) and even during a normal conversation. Patient reports orthopnea and PND. She denies cough, fever, chills , chest pain or palpitations. * Hypoxic respiratory failure requiring 2 L oxygen supplementation most likely multifactorial from combination of acute on chronic heart failure, pulmonary hypertension, obstructive sleep apnea, OHS. * Monitor vitals every shift * Provide oxygen supplementation to maintain saturation above 90 MUSHTAQ She is supposed to use her CPAP machine but is unable to tolerate it and machine was pricey despite insurance so she stopped using it. She was seeing Dr. Cox (Pulm at [place]) who diagnosed her with asthma but patient did not follow up since. * CPAP at nighttime * Patient is requesting for a new pulmonology referral for outpatient follow-up and sleep study * Patient is willing to see Dr. Feliz as an outpatient * Will provide pulmonary referral at the time of discharge Chronic atrial fibrillation- continue Pradaxa 150 twice daily and metoprolol 100 twice a day COPD continue TRC nebs Hyperlipidemia continue Lipitor 20 daily hypertension continue lisinopril 20 twice a day Diabetes mellitus please hold metformin, Accu-Cheks, NovoLog sliding scale was ordered chronic venous stasis LE: b/l 3++ pitting pedal edema extending up into the thigh and abdomen, chronic venous stasis skin changes with chronic wounds, no evidence of cellulitis. * Wound consult requested for her own care Fungal rash Continue cyclopirox and hydrocortisone for local tinea fungal infection under bilateral breast as prescribed by Senior Operator * PT eval * Diet: Heart Healthy. Patient has requested for a nutrition consult for weight loss * DVT Prophylaxis: On Pradaxa * Code: Full Code Problem List: 1. CHF (congestive heart failure) Pain Ratin Pain Location: N/A Pain Goal: Remain pain free Pain Plan: TYLENOL Tomorrow's Labs & Rationales: CBC BEP Harry Menon MD 05/21/17 1716: Attending MD Review Statement Attending Statement Attending MD Statement: examined this patient, discuss w/resident/PA/RAIL TRANSIT OPERATOR, agreed w/resident/PA/RAIL TRANSIT OPERATOR, reviewed EMR data (avail), discussed with nursing, amended to note Attending Assessment/Plan: The patient was seen and discussed with house staff. Appreciate Cardiology input. Continue IV Lasix as per cardiology. Patient requesting that she will change to pulmonary care here with Dr. Feliz. Did have CPAP machine, however her insurance began charging her for it and this has been an issue. Unclear if she may be a candidate for oral device for MUSHTAQ. Will need pulmonary consult.
[2017-05-21 08:00] VITALS: BP 110/64
--- NOTE | 2017-05-21 12:35 | Cons- Cardiology ---
General Information and HPI Consulting Request Date of Consult: 05/21/17 Requested By: Los KIMBALL,Joyce Reason for Consult: dyspnea/afib Source of Information: patient, old records History of Present Illness: This is a 67-year-old female with a past medical history of persistent atrial fibrillation on Pradaxa, mild nonischemic heart myopathy, chronic systolic heart failure, hypertension, hyperlipidemia, diabetes, morbid obesity, venous insufficiency, and obstructive sleep apnea intolerant of CPAP who initially presented to with a chief complaint of some bleeding from a lower extremity callus; she was also found to have hypoxia. She does report some increased shortness of breath in recent months which is not associated with any chest pain, palpitations, or diaphoresis. She reports that she has not been taking her diuretic for the last 2 weeks. Denies any syncope, visual changes, slurring of speech, or focal weakness. Allergies/Medications Allergies: Coded Allergies: NO KNOWN ALLERGIES (09/19/12) NKA PER ANTIBIOTIC ORDER SHEET OF 09/20/12 - [facility] Home Med List: Albuterol Sulfate (Proair Hfa) 90 MCG HFA.AER.AD 2 PUF INH PRN RESPIRATORY ( Reported) Atorvastatin Calcium 20 MG TABLET 1 TAB PO QPM CHOLESTEROL (Reported) Ciclopirox Olamine (Ciclopirox) 0.77 % CREAM..G. 1 OLGA TOP BID SKIN (Reported ) apply to affected area(s) Dabigatran Etexilate Mesylate (Pradaxa 150 MG) 150 MG CAPSULE 1 CAP PO BID BLOOD THINNER (Reported) Furosemide 40 MG TABLET 1 TAB PO PRN DIURETIC (Reported) Hydrochlorothiazide 25 MG TABLET 1 TAB PO DAILY DIURETIC (Reported) Hydrocortisone 2.5 % CREAM..G. 1 OLGA TOP BID ITCHING (Reported) apply to affected area(s) Lisinopril 20 MG TABLET 1 TAB PO BID BP (Reported) Metformin HCl (Metformin HCl ER) 500 MG TAB.ER.24H 2 TAB PO BID PRE-DIABETIC (Reported) Metoprolol Tartrate (Unknown Strength) TABLET (Unknown Dose) PO BID HEART/BP (Reported) Mv-Min/Vit C/Glu/[place]upe HCl/Hc124 (Airborne Effervescent Tablet) 1,000 MG-50 MG TABLET.EFF 1 TAB PO DAILY SUPPLEMENT (Reported) Sodium Fluoride (Sf 5000 Plus) 1.1 % CREAM..G. 1 OLGA PO BID TEETH (Reported) Current Medications: Current Medications Sig/Dolly Start time Last Medication Dose Route Stop Time Status Admin Acetaminophen 650 MG Q6P PRN 05/20 2130 AC PO Albuterol Sulfate 2 PUF Q4P PRN 05/21 0900 AC INH Atorvastatin Calcium 20 MG QPM 05/21 2100 AC PO Dabigatran 150 MG BID 05/21 0900 AC 05/21 PO 1218 Dabigatran 150 MG ONCE ONE 05/21 0130 DC 05/21 PO 05/21 0131 0154 Furosemide 40 MG DAILY 05/21 0900 AC 05/21 IV 0818 Furosemide 0 .STK-MED ONE 05/20 1754 DC IV Furosemide 60 MG ONCE ONE 05/20 1730 DC 05/20 IV 05/20 1731 1940 Hydrochlorothiazide 25 MG DAILY 05/21 0900 AC 05/21 PO 1217 Hydrocortisone 1 OLGA BID 05/21 0900 CAN TOP Insulin Aspart 0 TIDAC 05/21 1200 AC SC Ketoconazole 1 OLGA BID 05/21 0900 AC TOP Lisinopril 20 MG BID 05/21 0900 AC 05/21 PO 1217 Metoprolol Tartrate 100 MG BID 05/21 0900 AC 05/21 PO 1218 Metoprolol Tartrate 0 .STK-MED ONE 05/21 0144 DC PO Metoprolol Tartrate 100 MG ONCE ONE 05/21 0130 DC 05/21 PO 05/21 0131 0154 Non-Formulary 0 SEE ADMIN CRITERIA 05/21 0130 CAN Medication ANY Nystatin 1 OLGA BID 05/21 0900 CAN TOP Nystatin 1 OLGA BID 05/20 2141 DC 05/20 TOP 2345 Review of Systems Review of Systems: Review of systems as per HPI. The remainder of a 10 point review of systems was reviewed and was otherwise negative. 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 Surgical History Surgical History: sinus surgery, Lasix eye surgery Family History Relations & Conditions If Any: MOTHER Cardiac edema Psychosocial History Primary Language: Estonian Smoking Status: Former Smoker ETOH Use: denies use Illicit Drug Use: denies illicit drug use Exam & Diagnostic Data Vital Signs and I&O Vital Signs Date Time Temp Pulse Resp B/P B/P Pulse O2 O2 Flow FiO2 Mean Ox Delivery Rate 05/21 1218 101 102/78 05/21 1217 107 102/78 05/21 0757 95 Nasal 2.0L Cannula 05/21 0529 97.6 98 22 108/60 97 Room Air 05/21 0154 115 138/76 05/21 0154 97.8 115 18 138/76 98 Nasal 2.0L Cannula 05/21 0126 Nasal 2.0L Cannula 05/20 2256 98.0 112 17 149/79 94 Room Air 05/20 2133 98.1 110 18 143/96 96 Room Air 05/20 1734 97.7 96 18 115/85 98 Room Air 05/20 1517 97.6 112 20 145/108 96 Room Air Intake & Output 05/21 1600 05/21 0800 05/21 0000 05/20 1600 05/20 0800 05/20 0000 Intake Total Output Total 720 3100 Balance -720 -3100 Output, Urine 720 3100 Patient 336 lb 320 lb Weight Weight Reported by Patient Measurement Method Physical Exam: General: no apparent distress. Alert. Obese. On nasal cannula Eyes: No obvious scleral icterus. HEENT: No jugular venous distention or abnormal jugular venous pulsations. Cardiovascular: Normal intensity S1/S2. Irregular Respiratory: Mildly decreased air entry Abdomen: no guarding or rebound tenderness. Musculoskeletal: Bilateral lower extremity dressings noted Skin: Stasis changes noted Neurologic: No gross focal deficits noted. Labs/Tereso Results: Laboratory Tests 05/21 05/20 05/20 0538 2235 2200 Blood Gas pH (7.35 - 7.45 PH) 7.45 pCO2 (35 - 45 TORR) 37 pO2 (80 - 100 TORR) 61 L HCO3 (21 - 28 MEQ/L) 26 ABG O2 Sat (Measured) (>96.0 %) 92.0 L Carboxyhemoglobin (1.5 - 5.0 %) 0.6 L O2 Concentration % RA O2 Delivery Method ra Chemistry Sodium (137 - 145 mmol/L) 145 Potassium (3.5 - 5.1 mmol/L) 4.2 Chloride (98 - 107 mmol/L) 109 H Carbon Dioxide (22 - 30 mmol/L) 29 Anion Gap (5 - 16) 7 BUN (7 - 17 mg/dL) 14 Creatinine (0.5 - 1.0 mg/dL) 0.8 Estimated GFR (>60 ml/min) > 60 BUN/Creatinine Ratio (7 - 25 %) 17.5 Troponin I (< 0.11 ng/ml) < 0.01 < 0.01 Hematology CBC w Diff NO MAN DIFF REQ WBC (4.8 - 10.8 /CUMM) 7.8 RBC (4.20 - 5.40 /CUMM) 4.59 Hgb (12.0 - 16.0 G/DL) 11.8 L Hct (37 - 47 %) 37.7 MCV (81.0 - 99.0 FL) 82.1 MCH (27.0 - 31.0 PG) 25.7 L MCHC (33.0 - 37.0 G/DL) 31.3 L RDW (11.5 - 14.5 %) 18.0 H Plt Count (130 - 400 /CUMM) 276 MPV (7.4 - 10.4 FL) 7.9 Gran % (42.2 - 75.2 %) 78.0 H Lymphocytes % (20.5 - 51.1 %) 11.2 L Monocytes % (1.7 - 9.3 %) 9.4 H Eosinophils % (0 - 5 %) 1.1 Basophils % (0.0 - 2.0 %) 0.3 Absolute Granulocytes (1.4 - 6.5 /CUMM) 6.0 Absolute Lymphocytes (1.2 - 3.4 /CUMM) 0.9 L Absolute Monocytes (0.10 - 0.60 /CUMM) 0.7 H Absolute Eosinophils (0.0 - 0.7 /CUMM) 0.1 Absolute Basophils (0.0 - 0.2 /CUMM) 0 Miscellaneous Phlebotomy Draw Site LEFT RADIAL 05/20 1616 Chemistry Sodium (137 - 145 mmol/L) 148 H Potassium (3.5 - 5.1 mmol/L) 4.7 Chloride (98 - 107 mmol/L) 107 Carbon Dioxide (22 - 30 mmol/L) 31 H Anion Gap (5 - 16) 9 BUN (7 - 17 mg/dL) 15 Creatinine (0.5 - 1.0 mg/dL) 0.9 Estimated GFR (>60 ml/min) > 60 BUN/Creatinine Ratio (7 - 25 %) 16.7 Glucose (65 - 99 mg/dL) 105 H Calcium (8.4 - 10.2 mg/dL) 9.3 Total Bilirubin (0.2 - 1.3 mg/dL) 0.8 AST (14 - 36 U/L) 18 ALT (9 - 52 U/L) 28 Alkaline Phosphatase (<127 U/L) 79 Troponin I (< 0.11 ng/ml) < 0.01 Iyz-S-Iobkitgprgl Pept (<125 pg/mL) 1900 H Total Protein (6.3 - 8.2 g/dL) 7.2 Albumin (3.5 - 5.0 g/dL) 3.7 Globulin (1.9 - 4.2 gm/dL) 3.5 Albumin/Globulin Ratio (1.1 - 2.2 %) 1.1 TSH (0.270 - 4.200 uIU/mL) 1.670 Free T4 (0.78 - 2.44 ng/dL) 1.19 Thyroxine (T4) (4.5 - 10.9 ug/dL) 8.0 Coagulation PT (9.4 - 12.5 SEC) 14.1 H INR (0.90 - 1.19) 1.29 H APTT (25 - 37 SEC) 34 D-Dimer High Sensitivty (0 - 243 ng/ml) 261 H Hematology CBC w Diff NO MAN DIFF REQ WBC (4.8 - 10.8 /CUMM) 7.3 RBC (4.20 - 5.40 /CUMM) 4.92 Hgb (12.0 - 16.0 G/DL) 12.8 Hct (37 - 47 %) 40.6 MCV (81.0 - 99.0 FL) 82.6 MCH (27.0 - 31.0 PG) 25.9 L MCHC (33.0 - 37.0 G/DL) 31.4 L RDW (11.5 - 14.5 %) 18.0 H Plt Count (130 - 400 /CUMM) 278 MPV (7.4 - 10.4 FL) 7.7 Gran % (42.2 - 75.2 %) 77.1 H Lymphocytes % (20.5 - 51.1 %) 12.4 L Monocytes % (1.7 - 9.3 %) 8.7 Eosinophils % (0 - 5 %) 1.6 Basophils % (0.0 - 2.0 %) 0.2 Absolute Granulocytes (1.4 - 6.5 /CUMM) 5.7 Absolute Lymphocytes (1.2 - 3.4 /CUMM) 0.9 L Absolute Monocytes (0.10 - 0.60 /CUMM) 0.6 Absolute Eosinophils (0.0 - 0.7 /CUMM) 0.1 Absolute Basophils (0.0 - 0.2 /CUMM) 0 Diagnostic Data EKG Results Tracing was personally reviewed and shows atrial fibrillation at 109 bpm with borderline R-wave progression and right axis deviation CXR Results Cardiomegaly, pulmonary venous congestion and interstitial edema in lower lungs. Other Results Telemetry tracings were personally reviewed and showed atrial fibrillation with grossly controlled ventricular response rate Assessment/Plan Assessment/Plan 1. Respiratory insufficiency which is likely multifactorial 2. Acute on chronic systolic heart failure likely due to recent noncompliance with Lasix along with dietary noncompliance 3. History of mild nonischemic cardiomyopathy 4. History of persistent atrial fibrillation on Pradaxa 6. Morbid obesity 7. Obstructive sleep apnea with reported intolerance to CPAP 8. Diabetes/hypertension/hyperlipidemia 9. Venous insufficiency likely due to obesity Patient's respiratory insufficiency is likely multifactorial but she may have a component of mild volume overload in the setting of recent noncompliance with her Lasix; agree with IV Lasix for now but will likely be able to transition back to oral Lasix as early as tomorrow. Continue her outpatient Pradaxa. Echocardiogram is pending. Average heart rate is well controlled on current regimen. Serial troponins are all within normal limits. Jonas López MD FACC Consult Acknowledgment - Thank you for your consult request.
[2017-05-21 16:00] VITALS: BP 106/76
[2017-05-21 23:12] VITALS: BP 118/88
[2017-05-22 06:24] LABS: ABSOLUTE BASOPHIL COUNT 0 /CUMM (0.0-0.2); ABSOLUTE EOSINOPHIL COUNT 0.2 /CUMM (0.0-0.7); ABSOLUTE GRANULOCYTE CT 5.3 /CUMM (1.4-6.5); ABSOLUTE LYMPH COUNT 1.4 /CUMM (1.2-3.4); ABSOLUTE MONOCYTE COUNT 0.7 /CUMM (0.10-0.60); BASOPHIL % 0.2 % (0.0-2.0); EOSINOPHIL % 2.7 % (0-5); GRANULOCYTE % 70.1 % (42.2-75.2); MEAN CORPUSCULAR HGB 25.4 PG (27.0-31.0); MEAN CORPUSCULAR HGB CONC 31.1 G/DL (33.0-37.0); MEAN CORPUSCULAR VOLUME 81.6 FL (81.0-99.0); MEAN PLATELET VOLUME 8.1 FL (7.4-10.4); PLATELET COUNT 277 /CUMM (130-400); RBC DISTRIBUTION WIDTH 17.4 % (11.5-14.5); RED BLOOD CELL CT 4.65 /CUMM (4.20-5.40); WHITE BLOOD CELL COUNT 7.6 /CUMM (4.8-10.8)
[2017-05-22 07:00] VITALS: BP 106/65
--- NOTE | 2017-05-22 07:38 | PN- Housestaff ---
See Addendum Subjective Follow-up For: 1. Acute hypoxic respiratory failure seems multifactorial from a combination of heart failure, pulmonary hypertension, sleep apnea and possible OHS. 2. Acute exacerbation of chronic HfrEF 2/2 medication and dietary noncompliance 3. MUSHTAQ noncompliant with CPAP 4. Pulmonary hypertension, mild to moderate mitral regurgitation 5. Possible underlying Obesity hypoventilation syndrome 6. Chronic Afib on pradaxa 7. Traumatic bleeding while on anticoagulants bleeding controlled 8. Type 2 diabetes and essential hypertension Complaints: pain scale (0-10) Tele-Events Since Last Visit: Telemetry monitoring uneventful Atrial fibrillation rate under control Subjective: She was seen and examined this morning. She is alert awake and oriented 3. No acute events noticed overnight. Patient reports shortness of breath with exertion. Continues to report orthopnea and paroxysmal nocturnal dyspnea. Denies any fever, chills, chest pain or pressure, palpitations. Continues to report lower extremity edema Vitals were within normal limits afebrile, heart rate 96, respiratory rate 18, blood pressure 125/60, saturating at 98 on 2 L oxygen. Review of Systems Constitutional: Reports: see HPI. Objective Last 24 Hrs of Vital Signs/I&O Vital Signs Date Time Temp Pulse Resp B/P B/P Pulse O2 O2 Flow FiO2 Mean Ox Delivery Rate 05/22 0859 97.6 90 24 106/65 05/22 0858 97.6 90 24 106/65 05/22 0800 94 Nasal 2.0L Cannula 05/22 0700 98.0 96 24 106/65 94 Nasal 2.0L Cannula 05/22 0000 95 Nasal 2.0L Cannula 05/21 2312 97.7 98 27 118/88 95 Nasal 2.0L Cannula 05/21 2306 83 118/88 05/21 2305 83 118/88 05/21 2005 95 Nasal 2.0L Cannula 05/21 1600 95 Nasal 2.0L Cannula 05/21 1600 98.2 94 20 106/76 95 Nasal 2.0L Cannula 05/21 1413 Nasal 2.0L Cannula Intake & Output 05/22 1600 05/22 0800 05/22 0000 Intake Total 240 Output Total 600 900 Balance -600 -660 Intake, Oral 240 Number 0 0 Bowel Movements Output, Urine 600 900 Patient 149.487 kg Weight Weight Bed scale Measurement Method Physical Exam General Appearance: Alert, Oriented X3, Cooperative, No Acute Distress Other Physical Findings: morbidly obese,no respiratory distress MMM, JVD+ Chest b/l reduced air entry and few left basilar crackles, no wheeze or rhonchi Heart S1S2 irregularly irregular, systolic murmur+ Abd soft, diffuse lower abdominal wall edema, non tender. LE: b/l 2++ pitting pedal edema chronic venous stasis skin changes with chronic wounds, no evidence of cellulitis. Peripheral pulse+. Fungal rash noted under bilateral breasts (right side is healing, left side is active and erythematous). Current Medications: Current Medications Sig/Dolly Start time Last Medication Dose Route Stop Time Status Admin Acetaminophen 650 MG Q6P PRN 05/20 2130 AC PO Albuterol Sulfate 2 PUF Q4P PRN 05/21 0900 AC INH Atorvastatin Calcium 20 MG QPM 05/21 2100 AC 05/21 PO 2133 Dabigatran 150 MG BID 05/21 0900 AC 05/22 PO 0858 Furosemide 40 MG DAILY 05/22 0900 AC 05/22 PO 0950 Furosemide 40 MG DAILY 05/21 0900 DC 05/21 IV 0818 Hydrochlorothiazide 25 MG DAILY 05/21 0900 AC 05/22 PO 0857 Insulin Aspart 0 TIDAC 05/21 1200 AC 05/21 SC 1223 Ketoconazole 1 OLGA BID 05/21 0900 AC 05/22 TOP 0950 Lisinopril 20 MG BID 05/21 0900 AC 05/22 PO 0859 Metoprolol Tartrate 100 MG BID 05/21 0900 AC 05/22 PO 0858 Last 24 Hrs of Lab/Tereso Results Last 24 Hrs of Labs/Mics: Laboratory Tests 05/22/17 0550: Anion Gap 7, Estimated GFR > 60, BUN/Creatinine Ratio 17.8, CBC w Diff NO MAN DIFF REQ, RBC 4.65, MCV 81.6, MCH 25.4 L, MCHC 31.1 L, RDW 17.4 H, MPV 8.1, Gran % 70.1, Lymphocytes % 18.1 L, Monocytes % 8.9, Eosinophils % 2.7, Basophils % 0.2, Absolute Granulocytes 5.3, Absolute Lymphocytes 1.4, Absolute Monocytes 0.7 H, Absolute Eosinophils 0.2, Absolute Basophils 0 Assessment/Plan Assessment: 67 yo morbidly obese F with h/o HTN, T2DM, Afib on Pradaxa, chronic HfrEF, MUSHTAQ noncompliant with CPAP, ?asthma, presented to the ER for evaluation of bleeding from the dorsum of her foot after she tried to use a callus michelle. In the ER, bleeding was controlled with surgicel and pressure dressing. However, patient was notably dyspneic and dropped her sats to 88% on RA on ambulation, hence further evaluation was done. she was admitted to ICU as tele hold for management of acute on chronic heart failure. Vitals: afebrile, HR 90-110's, BP 143/96, sats 96% RA --> 88% RA on ambulation, 87-88% RA while sleeping placed on 2L. Labs: no leukocytosis, D-dimer 261, Na 148, bicarb 31, glucose 105, trop neg, proBNP 1900, TSH and free T4 normal. CXR: cardiomegaly, pulmonary venous congestion and interstitial edema in lower lungs. EKG: afib @ 108, Qtc 494. Echo (2015): EF 45-50%, mild left ventricular dilatation, mild to moderate MR, mild TR, RVSP 49 mmHg. Assessment and plan: 1. Acute hypoxic respiratory failure seems multifactorial from a combination of heart failure, pulmonary hypertension, sleep apnea and possible OHS. 2. Acute exacerbation of chronic HfrEF 2/2 medication and dietary noncompliance 3. MUSHTAQ noncompliant with CPAP 4. Pulmonary hypertension, mild to moderate mitral regurgitation 5. Possible underlying Obesity hypoventilation syndrome 6. Chronic Afib on pradaxa 7. Traumatic bleeding while on anticoagulants bleeding controlled 8. Type 2 diabetes and essential hypertension -------- 1. Acute exacerbation of chronic heart failure with reduced ejection fraction she has history of heart failure with reduced ejection fraction. Patient is supposed to take Lasix 40 mg and hydrochlorothiazide 25 daily. However patient has not been taking her medications for last 2 weeks. Patient also reports weight gain for last few months from dietary noncompliance. Patient presented with worsening shortness of breath, orthopnea, paroxysmal nocturnal dyspnea, weight gain, hypoxic requiring oxygen supplementation. CXR showed cardiomegaly, pulmonary venous congestion and interstitial edema in lower lungs. Acute exacerbation of chronic heart failure from dietary noncompliance, medication noncompliance. * Admit to telemetry * Continuous telemetry monitoring * Monitor vitals every shift * Started IV Lasix 40 daily later switched to oral Lasix 40 daily. * Daily ins and outs * Strict weights * 2 g sodium restriction diet * Echocardiogram showed No obvious regional wall motion abnormalities. Left ventricular ejection fraction is estimated at 55 % * Credit Portfolio Advisor on board * Continue Lasix * Continue hydrochlorothiazide 25 mg daily * Monitor electrolytes and replete accordingly * Monitor BUN and creatinine * Ruled out ACS with serial troponin and EKG Acute hypoxic respiratory failure seems multifactorial from a combination of heart failure, pulmonary hypertension, sleep apnea and possible OHS. patient was notably dyspneic and dropped her sats to 88% on RA on ambulation, hence further evaluation was done. Patient has chronic baseline dyspnea, but according to family, dyspnea has gradually progressed over past 3-6 months, worse on exertion (taking few steps at home) and even during a normal conversation. Patient reports orthopnea and PND. She denies cough, fever, chills , chest pain or palpitations. * Hypoxic respiratory failure requiring 2 L oxygen supplementation most likely multifactorial from combination of acute on chronic heart failure, pulmonary hypertension, obstructive sleep apnea, OHS. * Monitor vitals every shift * Provide oxygen supplementation to maintain saturation above 90 MUSHTAQ She is supposed to use her CPAP machine but is unable to tolerate it and machine was pricey despite insurance so she stopped using it. She was seeing Dr. Cox (Pulm at [facility]) who diagnosed her with asthma but patient did not follow up since. * CPAP at nighttime * Patient is requesting for a new pulmonology referral for outpatient follow-up and sleep study * Patient is willing to see Dr. Feliz as an outpatient * Will provide pulmonary referral at the time of discharge Chronic atrial fibrillation- continue Pradaxa 150 twice daily and metoprolol 100 twice a day COPD continue TRC nebs Hyperlipidemia continue Lipitor 20 daily hypertension continue lisinopril 20 twice a day Diabetes mellitus please hold metformin, Accu-Cheks, NovoLog sliding scale was ordered chronic venous stasis LE: b/l 3++ pitting pedal edema extending up into the thigh and abdomen, chronic venous stasis skin changes with chronic wounds, no evidence of cellulitis. * Wound care consulted Fungal rash Continue cyclopirox and hydrocortisone for local tinea fungal infection under bilateral breast as prescribed by Digital Color Press Operator * PT eval * Diet: Heart Healthy. Patient has requested for a nutrition consult for weight loss * DVT Prophylaxis: On Pradaxa * Code: Full Code . Problem List: 1. CHF (congestive heart failure) Pain Ratin Pain Location: n/a Pain Goal: Remain pain free Pain Plan: tylenol Tomorrow's Labs & Rationales: cbc bep
--- NOTE | 2017-05-22 08:20 | ECHOCARDIOGRAM REPORT ---
NISREEN MIRANDA Age: 67 : 1950 Gender: F Exam Date: 05/21/2017 14:34 Exam Location: [facility] Ht (in): 66 Wt (lb): 320 BSA: 2.69 BP: 108 / 60 Ordering Physician: Malinda Justin MD Referring Physician: Vincent López M.D. Technologist: Ethel Venegas RDCS Room Number: 105 Indications: SHORTNESS OF BREATH Rhythm: Technical Quality: Very technically difficult study FINDINGS Left Ventricle Left ventricular cavity size normal. Left ventricular wall thickness mildly increased. No obvious regional wall motion abnormalities. Left ventricular ejection fraction is estimated at 55 %. Right Ventricle Right ventricle not well visualized. Right Atrium Right atrium not well visualized. Left Atrium Mild to moderate left atrial dilatation. Mitral Valve Mitral valve not well visualized. Aortic Valve Aortic valve not well visualized. No aortic stenosis. Tricuspid Valve Tricuspid valve not well visualized. [id number] tricuspid regurgitation. Unable to estimate the right ventricular systolic pressure. Pulmonic Valve Pulmonic valve not well visualized. Pericardium No pericardial effusion. Great Vessels Aortic root and proximal ascending aorta not well visualized. CONCLUSIONS Very technically difficult study Left ventricular cavity size normal. Left ventricular wall thickness mildly increased. No obvious regional wall motion abnormalities. Left ventricular ejection fraction is estimated at 55 %. Right ventricle not well visualized. Mild to moderate left atrial dilatation. [id number] tricuspid regurgitation. Unable to estimate the right ventricular systolic pressure. Vincent López M.D. (Electronically Signed) Final Date: 22 May 2017 08:20 MEASUREMENTS (Male / Female) Normal Values 2D ECHO LV Diastolic Diameter PLAX 5.0 cm 4.2 - 5.9 / 3.9 - 5.3 cm LV Systolic Diameter PLAX 3.2 cm 2.1 - 4.0 cm LV Fractional Shortening PLAX 36.0 % 25 - 46 % LV Ejection Fraction 2D Teich 65.4 % IVS Diastolic Thickness 1.3 cm LVPW Diastolic Thickness 1.4 cm LV Relative Wall Thickness 0.5 RV Internal Dim ED PLAX 3.7 cm 1.9 - 3.8 cm Aortic Root Diameter 2.5 cm LA Systolic Diameter LX 5.2 cm 3.0 - 4.0 / 2.7 - 3.8 cm DOPPLER AV Peak Velocity 97.1 cm/s AV Peak Gradient 3.8 mmHg AV Mean Velocity 63.9 cm/s AV Mean Gradient 2.0 mmHg AV Velocity Time Integral 20.2 cm LVOT Peak Velocity 57.1 cm/s LVOT Peak Gradient 1.3 mmHg LVOT Mean Velocity 41.9 cm/s LVOT Mean Gradient 1.0 mmHg LVOT Velocity Time Integral 13.0 cm MV Peak Velocity 128.0 cm/s MV Peak Gradient 6.6 mmHg MV Mean Velocity 73.8 cm/s MV Mean Gradient 3.0 mmHg Mitral E Point Velocity 101.0 cm/s MV PHT Velocity 133.0 cm/s MV Deceleration [place] 366.0 cm/s MV Pressure Half Time 109.0 ms MV Area PHT 2.0 cm MV Deceleration Time 90.0 ms TR Peak Velocity 197.0 cm/s TR Peak Gradient 15.5 mmHg Right Atrial Pressure 5.0 mmHg Pulmonary Artery Systolic Pressu 20.5 mmHg Right Ventricular Systolic Press 20.5 mmHg PV Peak Velocity 99.3 cm/s PV Peak Gradient 3.9 mmHg PV Mean Velocity 64.6 cm/s PV Mean Gradient 2.0 mmHg PV Velocity Time Integral 19.9 cm LV E' Lateral Velocity 10.6 cm/s Mitral E to LV E' Lateral Ratio 9.5 LV E' Septal Velocity 10.4 cm/s Mitral E to LV E' Septal Ratio 9.7
--- NOTE | 2017-05-22 09:19 | PN- Cardiology ---
Subjective Subjective: Patient states that she feels better but still complains of mild shortness of breath and a feeling of congestion. She denies chest discomfort. Review of Systems: Eyes no blurred or double vision Ears no deafness or ringing Nose and throat no recurrent sinusitis Lungs per history of present illness Heart per history of present illness Abdomen no nausea vomiting Musculoskeletal occasional muscle and joint pains Psych no anxiety or depression Neuro without recurrent headache or seizures Endocrine no heat or cold intolerance Objective Vital Signs and I&Os Vital Signs Date Time Temp Pulse Resp B/P B/P Pulse O2 O2 Flow FiO2 Mean Ox Delivery Rate 05/22 0859 97.6 90 24 106/65 05/22 0858 97.6 90 24 106/65 05/22 0000 95 Nasal 2.0L Cannula 05/21 2312 97.7 98 27 118/88 95 Nasal 2.0L Cannula 05/21 2306 83 118/88 05/21 2305 83 118/88 05/21 2005 95 Nasal 2.0L Cannula 05/21 1600 95 Nasal 2.0L Cannula 05/21 1600 98.2 94 20 106/76 95 Nasal 2.0L Cannula 05/21 1413 Nasal 2.0L Cannula 05/21 1218 101 102/78 05/21 1217 107 102/78 Intake & Output 05/22 1600 05/22 0800 05/22 0000 05/21 1600 05/21 0800 05/21 0000 Intake Total 240 914 Output Total 501 460 6717 720 3100 Balance -600 -660 -1486 -720 -3100 Intake, IV 14 Intake, Oral 240 900 Number 0 0 0 Bowel Movements Output, Urine 796 730 8815 720 3100 Patient 330 lb 320 lb 336 lb Weight Weight Bed scale Measurement Method Physical Exam: Patient is a well-developed well-nourished female appearing in no acute distress HEENT is unremarkable Neck is supple there is no JVD Lungs decreased air entry bilaterally Heart irregular rhythm S1 and S2 are normal no murmurs gallops or rubs Abdomen bowel sounds positive Extremities both legs wrapped with Romulo bandages Current Medications: Current Medications Sig/Dolly Start time Last Medication Dose Route Stop Time Status Admin Acetaminophen 650 MG Q6P PRN 05/20 2130 AC PO Albuterol Sulfate 2 PUF Q4P PRN 05/21 0900 AC INH Atorvastatin Calcium 20 MG QPM 05/21 2100 AC 05/21 PO 2133 Dabigatran 150 MG BID 05/21 899 AC 05/22 PO 0858 Furosemide 40 MG DAILY 05/22 899 AC PO Furosemide 40 MG DAILY 05/21 0900 DC 05/21 IV 0818 Hydrochlorothiazide 25 MG DAILY 05/21 899 AC 05/22 PO 0857 Insulin Aspart 0 TIDAC 05/21 1200 AC 05/21 SC 1223 Ketoconazole 1 OLGA BID 05/21 899 AC 05/21 [facility] 2132 Lisinopril 20 MG BID 05/21 09 AC 05/22 PO 0859 Metoprolol Tartrate 100 MG BID 05/21 09 AC 05/22 PO 0858 Results Last 48 Hrs of Labs/Mics: Laboratory Tests 05/22/17 0550: Anion Gap 7, Estimated GFR > 60, BUN/Creatinine Ratio 17.8, CBC w Diff NO MAN DIFF REQ, RBC 4.65, MCV 81.6, MCH 25.4 L, MCHC 31.1 L, RDW 17.4 H, MPV 8.1, Gran % 70.1, Lymphocytes % 18.1 L, Monocytes % 8.9, Eosinophils % 2.7, Basophils % 0.2, Absolute Granulocytes 5.3, Absolute Lymphocytes 1.4, Absolute Monocytes 0.7 H, Absolute Eosinophils 0.2, Absolute Basophils 0 05/21/17 0538: Anion Gap 7, Estimated GFR > 60, BUN/Creatinine Ratio 17.5, Troponin I < 0.01, CBC w Diff NO MAN DIFF REQ, RBC 4.59, MCV 82.1, MCH 25.7 L, MCHC 31.3 L, RDW 18.0 H, MPV 7.9, Gran % 78.0 H, Lymphocytes % 11.2 L, Monocytes % 9.4 H, Eosinophils % 1.1, Basophils % 0.3, Absolute Granulocytes 6.0, Absolute Lymphocytes 0.9 L, Absolute Monocytes 0.7 H, Absolute Eosinophils 0.1, Absolute Basophils 0 05/20/17 2235: pH 7.45, pCO2 37, pO2 61 L, HCO3 26, ABG O2 Sat (Measured) 92.0 L, Carboxyhemoglobin 0.6 L, O2 Concentration % RA, O2 Delivery Method ra, Phlebotomy Draw Site LEFT RADIAL 05/20/17 2200: Troponin I < 0.01 05/20/17 1616: Anion Gap 9, Estimated GFR > 60, BUN/Creatinine Ratio 16.7, Glucose 105 H, Calcium 9.3, Total Bilirubin 0.8, AST 18, ALT 28, Alkaline Phosphatase 79, Troponin I < 0.01, Ive-N-Lhqmccemsgp Pept 1900 H, Total Protein 7.2, Albumin 3.7, Globulin 3.5, Albumin/Globulin Ratio 1.1, TSH 1.670, Free T4 1.19, Thyroxine (T4) 8.0, PT 14.1 H, INR 1.29 H, APTT 34, D-Dimer High Sensitivty 261 H, CBC w Diff NO MAN DIFF REQ, RBC 4.92, MCV 82.6, MCH 25.9 L, MCHC 31.4 L, RDW 18.0 H, MPV 7.7, Gran % 77.1 H, Lymphocytes % 12.4 L, Monocytes % 8.7, Eosinophils % 1.6, Basophils % 0.2, Absolute Granulocytes 5.7, Absolute Lymphocytes 0.9 L, Absolute Monocytes 0.6, Absolute Eosinophils 0.1, Absolute Basophils 0 Telemetry personally reviewed atrial fibrillation with controlled ventricular response Recent Imaging Studies: Echocardiogram CONCLUSIONS Very technically difficult study Left ventricular cavity size normal. Left ventricular wall thickness mildly increased. No obvious regional wall motion abnormalities. Left ventricular ejection fraction is estimated at 55 %. Right ventricle not well visualized. Mild to moderate left atrial dilatation. Taox-ea-ypkwfzwc tricuspid regurgitation. Unable to estimate the right ventricular systolic pressure. Assessment/Plan Assessment/Plan 1. Respiratory insufficiency which is likely multifactorial 2. Acute on chronic diastolic heart failure likely due to recent noncompliance with Lasix along with dietary noncompliance 3. History of mild nonischemic cardiomyopathy now with normalized ejection fraction of 55% 4. History of persistent atrial fibrillation on Pradaxa 6. Morbid obesity 7. Obstructive sleep apnea with reported intolerance to CPAP 8. Diabetes/hypertension/hyperlipidemia 9. Venous insufficiency likely due to obesity Recommendations 1. Would transition Lasix to by mouth 2. Continue Pradaxa for stroke prevention 3. Stressed compliance with medications and diet with salt and fluid restriction Continue telemetry? Yes
[2017-05-22 16:00] VITALS: BP 108/86
--- NOTE | 2017-05-22 19:15 | Discharge Summary ---
Visit Information Visit Dates Admission Date: 05/20/17 Discharge Date: 05/27/2017 Hospital Course Course Attending Physician: Harry Menon MD Primary Care Physician: Prashanth KIMBALL,Wolf Carvalho Hospital Course: 67 yo morbidly obese F with h/o HTN, T2DM, Afib on Pradaxa, chronic HfrEF, MUSHTAQ noncompliant with CPAP, ?asthma, presented to the ER for evaluation of bleeding from the dorsum of her foot after she tried to use a callus michelle. In the ER, bleeding was controlled with surgicel and pressure dressing. However, patient was notably dyspneic and dropped her sats to 88% on RA on ambulation, hence further evaluation was done. she was admitted to ICU as tele hold for management of acute on chronic heart failure. Vitals: afebrile, HR 90-110's, BP 143/96, sats 96% RA --> 88% RA on ambulation, 87-88% RA while sleeping placed on 2L. Labs: no leukocytosis, D-dimer 261, Na 148, bicarb 31, glucose 105, trop neg, proBNP 1900, TSH and free T4 normal. CXR: cardiomegaly, pulmonary venous congestion and interstitial edema in lower lungs. EKG: afib @ 108, Qtc 494. Echo (2015): EF 45-50%, mild left ventricular dilatation, mild to moderate MR, mild TR, RVSP 49 mmHg. Assessment and plan: 1. Acute hypoxic respiratory failure seems multifactorial from a combination of heart failure, pulmonary hypertension, sleep apnea and possible OHS. 2. Acute exacerbation of chronic HfrEF 2/2 medication and dietary noncompliance 3. MUSHTAQ noncompliant with CPAP 4. Pulmonary hypertension, mild to moderate mitral regurgitation 5. Possible underlying Obesity hypoventilation syndrome 6. Chronic Afib on pradaxa 7. Traumatic bleeding while on anticoagulants bleeding controlled 8. Type 2 diabetes and essential hypertension 9. Hematuria -------- Acute exacerbation of chronic heart failure with reduced ejection fraction she has history of heart failure with reduced ejection fraction. Patient is supposed to take Lasix 40 mg and hydrochlorothiazide 25 daily. However patient has not been taking her medications for last 2 weeks. Patient also reports weight gain for last few months from dietary noncompliance. Patient presented with worsening shortness of breath, orthopnea, paroxysmal nocturnal dyspnea, weight gain, hypoxic requiring oxygen supplementation. CXR showed cardiomegaly, pulmonary venous congestion and interstitial edema in lower lungs. Acute exacerbation of chronic heart failure from dietary noncompliance, medication noncompliance. Patient was admitted to telemetry for continuous telemetry monitoring. She received IV Lasix 40 initially later switched to her home dose of 40 mg orally daily. daily ins and outs were monitored. Daily weights were monitored. She was kept on 2 g sodium restriction diet. Echocardiogram showed No obvious regional wall motion abnormalities. Left ventricular ejection fraction is estimated at 55 %. 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 Continued Lasix and hydrochlorothiazide daily. BUN and creatinine remained stable. Serial troponin and EKG was negative for acute coronary syndrome Acute hypoxic respiratory failure seems multifactorial from a combination of heart failure, pulmonary hypertension, sleep apnea and possible OHS. patient was notably dyspneic and dropped her sats to 88% on RA on ambulation, hence further evaluation was done. Patient has chronic baseline dyspnea, but according to family, dyspnea has gradually progressed over past 3-6 months, worse on exertion (taking few steps at home) and even during a normal conversation. Patient reported orthopnea and PND. She denied cough, fever, chills, chest pain or palpitations. Hypoxic respiratory failure requiring 2 L oxygen supplementation most likely multifactorial from combination of acute on chronic heart failure, pulmonary hypertension, obstructive sleep apnea, OHS. Provided oxygen supplementation to maintain saturation above 90 MUSHTAQ She is supposed to use her CPAP machine but is unable to tolerate it and machine was pricey despite insurance so she stopped using it. She was seeing Dr. Cox ([facility] at [facility]) who diagnosed her with asthma but patient did not follow up since. Patient requested for a new pulmonology referral for outpatient follow-up and sleep study.Patient is willing to see Dr. Feliz as an outpatient. provided pulmonary referral at the time of discharge HEMATURIA Patient had blood in urine after removing foleys catheter on 05/23/2017. She denied any traumatic catheterization. She denied any pain during urination, frequency, urgency, lower abdomen pain, bilateral flank pain. No CVA tenderness. Off note patient is on anticoagulation pradaxa for atrial fibrillation. Urine analysis was done which showed RBC in urine, hemoglobin. Renal ultrasound was normal and x-ray KUB was normal. Urine cytology was normal. Patient was seen by Dr. Nguyen in the hospital. She underwent cystoscopy which showed NO BLADDER TUMOR, NO STONE: ERYTHEMATOUS MUCOSA CONSISTENT WITH RAMOS USE PREVIOUSLY. Chronic atrial fibrillation- continued Pradaxa 150 twice daily and metoprolol 100 twice a day COPD continued TRC nebs Hyperlipidemia continued Lipitor 20 daily hypertension continued lisinopril 20 twice a day Diabetes mellitus Held metformin, Accu-Cheks, NovoLog sliding scale was ordered chronic venous stasis LE: b/l 3++ pitting pedal edema extending up into the thigh and abdomen, chronic venous stasis skin changes with chronic wounds, no evidence of cellulitis. Wound care consulted with the daily dressings Fungal rash Continued cyclopirox and hydrocortisone for local tinea fungal infection under bilateral breast as prescribed by Ent Physician * Diet: Heart Healthy. * DVT Prophylaxis: On Pradaxa * Code: Full Code Allergies: Coded Allergies: NO KNOWN ALLERGIES (09/19/12) NKA PER ANTIBIOTIC ORDER SHEET OF 09/20/12 - [facility] Pertinent Lab Results: FINDINGS Left Ventricle Left ventricular cavity size normal. Left ventricular wall thickness mildly increased. No obvious regional wall motion abnormalities. Left ventricular ejection fraction is estimated at 55 %. Right Ventricle Right ventricle not well visualized. Right Atrium Right atrium not well visualized. Left Atrium Mild to moderate left atrial dilatation. Mitral Valve Mitral valve not well visualized. Aortic Valve Aortic valve not well visualized. No aortic stenosis. Tricuspid Valve Tricuspid valve not well visualized. Vifp-cm-hjjfctbi tricuspid regurgitation. Unable to estimate the right ventricular systolic pressure. Pulmonic Valve Pulmonic valve not well visualized. Pericardium No pericardial effusion. Great Vessels Aortic root and proximal ascending aorta not well visualized. CONCLUSIONS Very technically difficult study Left ventricular cavity size normal. Left ventricular wall thickness mildly increased. No obvious regional wall motion abnormalities. Left ventricular ejection fraction is estimated at 55 %. Right ventricle not well visualized. Mild to moderate left atrial dilatation. Ceyu-eo-cbptrhrv tricuspid regurgitation. Unable to estimate the right ventricular systolic pressure. Vincent López M.D. (Electronically Signed) Final Date: 22 May 2017 08:20 MEASUREMENTS (Male / Female) Normal Values 2D ECHO LV Diastolic Diameter PLAX 5.0 cm 4.2 - 5.9 / 3.9 - 5.3 cm LV Systolic Diameter PLAX 3.2 cm 2.1 - 4.0 cm LV Fractional Shortening PLAX 36.0 % 25 - 46 % LV Ejection Fraction 2D Teich 65.4 % IVS Diastolic Thickness 1.3 cm LVPW Diastolic Thickness 1.4 cm LV Relative Wall Thickness 0.5 RV Internal Dim ED PLAX 3.7 cm 1.9 - 3.8 cm Aortic Root Diameter 2.5 cm LA Systolic Diameter LX 5.2 cm 3.0 - 4.0 / 2.7 - 3.8 cm DOPPLER AV Peak Velocity 97.1 cm/s AV Peak Gradient 3.8 mmHg AV Mean Velocity 63.9 cm/s AV Mean Gradient 2.0 mmHg AV Velocity Time Integral 20.2 cm LVOT Peak Velocity 57.1 cm/s LVOT Peak Gradient 1.3 mmHg LVOT Mean Velocity 41.9 cm/s LVOT Mean Gradient 1.0 mmHg LVOT Velocity Time Integral 13.0 cm MV Peak Velocity 128.0 cm/s MV Peak Gradient 6.6 mmHg MV Mean Velocity 73.8 cm/s MV Mean Gradient 3.0 mmHg Mitral E Point Velocity 101.0 cm/s MV PHT Velocity 133.0 cm/s MV Deceleration Treasure 366.0 cm/s MV Pressure Half Time 109.0 ms MV Area PHT 2.0 cm MV Deceleration Time 90.0 ms TR Peak Velocity 197.0 cm/s TR Peak Gradient 15.5 mmHg Right Atrial Pressure 5.0 mmHg Pulmonary Artery Systolic Pressu 20.5 mmHg Right Ventricular Systolic Press 20.5 mmHg PV Peak Velocity 99.3 cm/s PV Peak Gradient 3.9 mmHg PV Mean Velocity 64.6 cm/s PV Mean Gradient 2.0 mmHg PV Velocity Time Integral 19.9 cm LV E' Lateral Velocity 10.6 cm/s Mitral E to LV E' Lateral Ratio 9.5 LV E' Septal Velocity 10.4 cm/s Mitral E to LV E' Septal Ratio 9.7 cxr FINDINGS: Suboptimal exam due to portable x-ray and patient's body habitus. There is moderate cardiomegaly. Pulmonary venous congestion also noted. Mild increased interstitial markings in the lower lungs can represent interstitial edema. Evaluation for pleural effusion is limited. IMPRESSION: Cardiomegaly, pulmonary venous congestion and interstitial edema in lower lungs. Disposition Summary Disposition Principal Diagnosis: 1. Acute hypoxic respiratory failure seems multifactorial from a combination of heart failure, pulmonary hypertension, sleep apnea and possible OHS. 2. Acute exacerbation of chronic HfrEF 2/2 medication and dietary noncompliance 3. MUSHTAQ noncompliant with CPAP 4. Pulmonary hypertension, mild to moderate mitral regurgitation 5. Possible underlying Obesity hypoventilation syndrome 6. Chronic Afib on pradaxa 7. Traumatic bleeding while on anticoagulants bleeding controlled 8. Type 2 diabetes and essential hypertension Additional Diagnosis: . Discharge Disposition: home or self care Discharge Instructions General Discharge Information Code Status: Full Code Patient's Diet: As tolerated Patient's Activity: As tolerated Follow-Up Instructions/Appts: Please follow-up with PCP in one week after discharge Please follow-up with sheeter machine operator in 1 week after discharge Please follow-up with compressor house operator in 1-2 weeks after discharge Medications at Discharge Discharge Medications: Stop taking the following medications: Furosemide (Furosemide) 40 MG TABLET ORAL as needed for DIURETIC Qty = 60 Continue taking these medications: Lisinopril (Lisinopril) 20 MG TABLET 1 Tablet ORAL TWICE DAILY Qty = 180 Comments: Last Taken:05/27/17 Time:10:26 Metoprolol Tartrate (Metoprolol Tartrate) 50 MG TABLET 2 Tablet ORAL TWICE DAILY Qty = 180 Comments: Last Taken:05/27/17 Time:10:25 Metformin HCl (Metformin HCl ER) 500 MG TAB.ER.24H 2 Tablet ORAL TWICE DAILY Qty = 360 Comments: NOT GIVEN HOSPITAL Atorvastatin Calcium (Atorvastatin Calcium) 20 MG TABLET 1 Tablet ORAL Every night Qty = 90 Comments: Last Taken:05/26/17 Time:20:36 Fluticasone/Vilanterol (Breo Ellipta 200-25 Mcg INH) 200 MCG-25 MCG/DOSE BLST.W.DEV 1 PUFF Inhale through mouth DAILY Qty = 180 Comments: NOT GIVEN IN THE HOSPITAL Hydrochlorothiazide (Hydrochlorothiazide) 25 MG TABLET 1 Tablet ORAL DAILY Qty = 90 Comments: Last Taken:05/27/17 Time:10:26 Albuterol Sulfate (Proair Hfa) 90 MCG HFA.AER.AD 2 Puff Inhale through mouth as needed for RESPIRATORY Qty = 9 Comments: Last Taken:05/21/17 Time:09:00 Dabigatran Etexilate Mesylate (Pradaxa 150 MG) 150 MG CAPSULE 1 Capsule ORAL TWICE DAILY Qty = 180 Comments: Last Taken:05/27/17 Time:10:26 Hydrocortisone (Hydrocortisone) 2.5 % CREAM..G. 1 Application On the skin TWICE DAILY Qty = 60 Instructions: apply to affected area(s) Comments: NOT GIVEN IN THE HOSPITAL Ciclopirox Olamine (Ciclopirox) 0.77 % CREAM..G. 1 Application On the skin TWICE DAILY Qty = 90 Instructions: apply to affected area(s) Comments: NOT GIVEN IN HOSPITAL Sodium Fluoride (Sf 5000 Plus) 1.1 % CREAM..G. 1 Application ORAL TWICE DAILY Qty = 51 Comments: NOT GIVEN IN THE HOSPTIAL Mv-Min/Vit C/Glu/Gu[place]upe HCl/Hc124 (Airborne Effervescent Tablet) 1,000 MG-50 MG TABLET.EFF 1 Tablet ORAL DAILY Comments: NOT GIVEN IN THE HOSPITAL Start taking the following new medications: Furosemide (Lasix) 20 MG TABLET 1 Tablet ORAL DAILY Qty = 30 No Refills Instructions: . Comments: Last Taken:05/27/17 Time:10:26 Oxybutynin Chloride (Oxybutynin Chloride ER) 10 MG TAB.ER.24 1 Tablet ORAL DAILY Qty = 30 No Refills Phenazopyridine HCl (Pyridium) 200 MG TABLET 1 Tablet ORAL THREE TIMES DAILY as needed for URINARY BURNING Qty = 6 No Refills Instructions: TAKE AFTER MEALS Copies To: Prashanth KIMBALL,Wolf Carvalho
[2017-05-23] VITALS: BP 110/64
[2017-05-23 06:53] LABS: ABSOLUTE BASOPHIL COUNT 0.1 /CUMM (0.0-0.2); ABSOLUTE EOSINOPHIL COUNT 0.2 /CUMM (0.0-0.7); ABSOLUTE GRANULOCYTE CT 5.4 /CUMM (1.4-6.5); ABSOLUTE LYMPH COUNT 0.9 /CUMM (1.2-3.4); ABSOLUTE MONOCYTE COUNT 0.7 /CUMM (0.10-0.60); BASOPHIL % 0.8 % (0.0-2.0); EOSINOPHIL % 2.4 % (0-5); GRANULOCYTE % 74.1 % (42.2-75.2); HEMATOCRIT 38.7 % (37-47); MEAN CORPUSCULAR HGB 25.9 PG (27.0-31.0); MEAN CORPUSCULAR HGB CONC 31.7 G/DL (33.0-37.0); MEAN CORPUSCULAR VOLUME 81.5 FL (81.0-99.0); MEAN PLATELET VOLUME 8.1 FL (7.4-10.4); PLATELET COUNT 280 /CUMM (130-400); RBC DISTRIBUTION WIDTH 17.1 % (11.5-14.5); RED BLOOD CELL CT 4.75 /CUMM (4.20-5.40); WHITE BLOOD CELL COUNT 7.3 /CUMM (4.8-10.8)
[2017-05-23 08:00] VITALS: BP 102/80
--- NOTE | 2017-05-23 08:29 | PN- Housestaff ---
See Addendum Subjective Follow-up For: 1. Acute hypoxic respiratory failure seems multifactorial from a combination of heart failure, pulmonary hypertension, sleep apnea and possible OHS. 2. Acute exacerbation of chronic HfrEF 2/2 medication and dietary noncompliance 3. MUSHTAQ noncompliant with CPAP 4. Pulmonary hypertension, mild to moderate mitral regurgitation 5. Possible underlying Obesity hypoventilation syndrome 6. Chronic Afib on pradaxa 7. Traumatic bleeding while on anticoagulants bleeding controlled 8. Type 2 diabetes and essential hypertension Complaints: pain scale (0-10) Tele-Events Since Last Visit: Telemetry monitoring uneventful Atrial fibrillation rate under control Subjective: She was seen and examined this morning. She is alert awake and oriented 3. No acute events noticed overnight. Patient reports shortness of breath only with exertion. Continues to report orthopnea and paroxysmal nocturnal dyspnea. Denies any fever, chills, chest pain or pressure, palpitations. Continues to have lower extremity edema Vitals were within normal limits afebrile, heart rate 86, respiratory rate 18, blood pressure 115/60, saturating at 96 on RA. Review of Systems Constitutional: Reports: see HPI. Objective Last 24 Hrs of Vital Signs/I&O Vital Signs Date Time Temp Pulse Resp B/P B/P Pulse O2 O2 Flow FiO2 Mean Ox Delivery Rate 05/23 0932 102/80 05/23 0932 97.6 102 20 102/80 05/23 0852 95 Room Air Room Air 05/23 0800 97.6 102 20 102/80 92 Room Air Room Air 05/23 0000 98 Nasal 2.0L Cannula 05/23 0000 98.8 84 24 110/64 98 Nasal 2.0L Cannula 05/23 2055 98.2 80 20 118/62 05/23 2055 98.4 86 20 118/62 05/22 1900 95 Nasal 2.0L Cannula 05/22 1600 95 Nasal 2.0L Cannula 05/22 1600 98.4 82 20 108/86 95 Nasal 2.0L Cannula 05/22 1407 94 Nasal 2.0L Cannula Intake & Output 05/23 1600 05/23 0800 05/23 0000 Intake Total 120 800 Output Total 1000 1900 Balance -880 -1100 Intake, IV Intake, Oral 120 800 Number 3 Bowel Movements Output, Urine 1000 1900 Physical Exam General Appearance: Alert, Oriented X3, Cooperative, No Acute Distress Other Physical Findings: morbidly obese,no respiratory distress MMM, JVD+ Chest b/l reduced air entry and few left basilar crackles, no wheeze or rhonchi Heart S1S2 irregularly irregular, systolic murmur+ Abd soft, diffuse lower abdominal wall edema, non tender. LE: b/l 2++ pitting pedal edema chronic venous stasis skin changes with chronic wounds, no evidence of cellulitis. Peripheral pulse+. Fungal rash noted under bilateral breasts (right side is healing, left side is active and erythematous). Current Medications: Current Medications Sig/Dolly Start time Last Medication Dose Route Stop Time Status Admin Acetaminophen 650 MG Q6P PRN 05/20 2130 AC PO Albuterol Sulfate 2 PUF Q4P PRN 05/21 0900 AC INH Atorvastatin Calcium 20 MG QPM 05/21 2100 AC 05/22 PO 2057 Dabigatran 150 MG BID 05/21 09 AC 05/23 PO 0932 Furosemide 40 MG DAILY 05/22 0900 AC 05/23 PO 0932 Hydrochlorothiazide 25 MG DAILY 05/21 0900 AC 05/23 PO 0932 Insulin Aspart 0 TIDAC 05/21 1200 AC 05/21 SC 1223 Ketoconazole 1 OLGA BID 05/21 09 AC 05/23 TOP 0934 Lisinopril 20 MG BID 05/21 0900 AC 05/23 PO 0932 Metoprolol Tartrate 100 MG BID 05/21 0900 AC 05/23 PO 0932 Last 24 Hrs of Lab/Tereso Results Last 24 Hrs of Labs/Mics: Laboratory Tests 05/23/17 0556: Anion Gap 11, Estimated GFR > 60, BUN/Creatinine Ratio 17.8, CBC w Diff NO MAN DIFF REQ, RBC 4.75, MCV 81.5, MCH 25.9 L, MCHC 31.7 L, RDW 17.1 H, MPV 8.1, Gran % 74.1, Lymphocytes % 13.0 L, Monocytes % 9.7 H, Eosinophils % 2.4, Basophils % 0.8, Absolute Granulocytes 5.4, Absolute Lymphocytes 0.9 L, Absolute Monocytes 0.7 H, Absolute Eosinophils 0.2, Absolute Basophils 0.1 Assessment/Plan Assessment: 67 yo morbidly obese F with h/o HTN, T2DM, Afib on Pradaxa, chronic HfrEF, MUSHTAQ noncompliant with CPAP, ?asthma, presented to the ER for evaluation of bleeding from the dorsum of her foot after she tried to use a callus michelle. In the ER, bleeding was controlled with surgicel and pressure dressing. However, patient was notably dyspneic and dropped her sats to 88% on RA on ambulation, hence further evaluation was done. she was admitted to ICU as tele hold for management of acute on chronic heart failure. Vitals: afebrile, HR 90-110's, BP 143/96, sats 96% RA --> 88% RA on ambulation, 87-88% RA while sleeping placed on 2L. Labs: no leukocytosis, D-dimer 261, Na 148, bicarb 31, glucose 105, trop neg, proBNP 1900, TSH and free T4 normal. CXR: cardiomegaly, pulmonary venous congestion and interstitial edema in lower lungs. EKG: afib @ 108, Qtc 494. Echo (2015): EF 45-50%, mild left ventricular dilatation, mild to moderate MR, mild TR, RVSP 49 mmHg. Assessment and plan: 1. Acute hypoxic respiratory failure seems multifactorial from a combination of heart failure, pulmonary hypertension, sleep apnea and possible OHS. 2. Acute exacerbation of chronic HfrEF 2/2 medication and dietary noncompliance 3. MUSHTAQ noncompliant with CPAP 4. Pulmonary hypertension, mild to moderate mitral regurgitation 5. Possible underlying Obesity hypoventilation syndrome 6. Chronic Afib on pradaxa 7. Traumatic bleeding while on anticoagulants bleeding controlled 8. Type 2 diabetes and essential hypertension -------- 1. Acute exacerbation of chronic heart failure with reduced ejection fraction she has history of heart failure with reduced ejection fraction. Patient is supposed to take Lasix 40 mg and hydrochlorothiazide 25 daily. However patient has not been taking her medications for last 2 weeks. Patient also reports weight gain for last few months from dietary noncompliance. Patient presented with worsening shortness of breath, orthopnea, paroxysmal nocturnal dyspnea, weight gain, hypoxic requiring oxygen supplementation. CXR showed cardiomegaly, pulmonary venous congestion and interstitial edema in lower lungs. Acute exacerbation of chronic heart failure from dietary noncompliance, medication noncompliance. * Admit to telemetry * Continuous telemetry monitoring * Monitor vitals every shift * Started IV Lasix 40 daily later switched to oral Lasix 40 daily. * Daily ins and outs * Strict weights * 2 g sodium restriction diet * Echocardiogram showed No obvious regional wall motion abnormalities. Left ventricular ejection fraction is estimated at 55 % * Midwife Practitioner on board * Continue Lasix * Continue hydrochlorothiazide 25 mg daily * Monitor electrolytes and replete accordingly * Monitor BUN and creatinine * Ruled out ACS with serial troponin and EKG Acute hypoxic respiratory failure seems multifactorial from a combination of heart failure, pulmonary hypertension, sleep apnea and possible OHS. patient was notably dyspneic and dropped her sats to 88% on RA on ambulation, hence further evaluation was done. Patient has chronic baseline dyspnea, but according to family, dyspnea has gradually progressed over past 3-6 months, worse on exertion (taking few steps at home) and even during a normal conversation. Patient reports orthopnea and PND. She denies cough, fever, chills , chest pain or palpitations. * Hypoxic respiratory failure requiring 2 L oxygen supplementation most likely multifactorial from combination of acute on chronic heart failure, pulmonary hypertension, obstructive sleep apnea, OHS. * Monitor vitals every shift * Provide oxygen supplementation to maintain saturation above 90 * saturating well on RA today MUSHTAQ She is supposed to use her CPAP machine but is unable to tolerate it and machine was pricey despite insurance so she stopped using it. She was seeing Dr. Cox (Pulm at [place]) who diagnosed her with asthma but patient did not follow up since. * CPAP at nighttime * Patient is requesting for a new pulmonology referral for outpatient follow-up and sleep study * Patient is willing to see Dr. Feliz as an outpatient * Will provide pulmonary referral at the time of discharge Chronic atrial fibrillation- continue Pradaxa 150 twice daily and metoprolol 100 twice a day COPD continue TRC nebs Hyperlipidemia continue Lipitor 20 daily hypertension continue lisinopril 20 twice a day Diabetes mellitus please hold metformin, Accu-Cheks, NovoLog sliding scale was ordered chronic venous stasis LE: b/l 2++ pitting pedal edema extending up into the thigh and abdomen, chronic venous stasis skin changes with chronic wounds, no evidence of cellulitis. * Wound care consulted * Daily dressings Fungal rash Continue cyclopirox and hydrocortisone for local tinea fungal infection under bilateral breast as prescribed by Hide Cooking Operator * Diet: Heart Healthy. * DVT Prophylaxis: On Pradaxa * Code: Full Code . Problem List: 1. CHF (congestive heart failure) Pain Ratin Pain Location: n/a Pain Goal: Remain pain free Pain Plan: tylenol Tomorrow's Labs & Rationales: cbc bep
--- NOTE | 2017-05-23 10:33 | PN- Cardiology ---
Subjective Subjective: Patient is sitting up in her bed and offers no new complaints. Objective Vital Signs and I&Os Vital Signs Date Time Temp Pulse Resp B/P B/P Pulse O2 O2 Flow FiO2 Mean Ox Delivery Rate 05/23 0932 102/80 05/23 0932 97.6 102 20 102/80 05/23 0852 95 Room Air Room Air 05/23 0800 97.6 102 20 102/80 92 Room Air Room Air 05/23 0000 98 Nasal 2.0L Cannula 05/23 0000 98.8 84 24 110/64 98 Nasal 2.0L Cannula 05/23 2055 98.2 80 20 118/62 05/22 205 98.4 86 20 118/62 05/22 1900 95 Nasal 2.0L Cannula 05/22 1600 95 Nasal 2.0L Cannula 05/22 1600 98.4 82 20 108/86 95 Nasal 2.0L Cannula 05/22 1407 94 Nasal 2.0L Cannula Intake & Output 05/23 1600 05/23 0800 05/23 0000 05/22 1600 05/22 0800 05/22 0000 Intake Total 120 800 400 240 Output Total 1000 1900 650 600 900 Balance -880 -1100 -250 -600 -660 Intake, IV Intake, Oral 120 800 400 240 Number 3 0 0 Bowel Movements Output, Urine 1000 1900 650 600 900 Patient 330 lb Weight Weight Bed scale Measurement Method Physical Exam: General: no apparent distress. Alert. Obese. Eyes: No obvious scleral icterus. HEENT: No jugular venous distention or abnormal jugular venous pulsations. Cardiovascular: Normal intensity S1/S2. Irregular Respiratory: Mildly decreased air entry Abdomen: no guarding or rebound tenderness. Musculoskeletal: Bilateral lower extremity dressings noted Skin: Stasis changes noted Neurologic: No gross focal deficits noted. Current Medications: Current Medications Sig/Dolly Start time Last Medication Dose Route Stop Time Status Admin Acetaminophen 650 MG Q6P PRN 05/20 2129 AC PO Albuterol Sulfate 2 PUF Q4P PRN 05/21 899 AC INH Atorvastatin Calcium 20 MG QPM 05/21 2100 AC 05/22 PO 2056 Dabigatran 150 MG BID 05/21 899 AC 05/23 PO 0932 Furosemide 40 MG DAILY 05/22 899 AC 05/23 PO 931 Hydrochlorothiazide 25 MG DAILY 05/21 899 AC 05/23 PO 0932 Insulin Aspart 0 TIDAC 05/21 1200 AC 05/21 HI 1223 Ketoconazole 1 OLGA BID 05/21 09 05/23 TOP 0934 Lisinopril 20 MG BID 05/21 899 AC 05/23 PO 0932 Metoprolol Tartrate 100 MG BID 05/21 899 05/23 PO 0932 Results Last 48 Hrs of Labs/Mics: Laboratory Tests 05/23/17 0556: Anion Gap 11, Estimated GFR > 60, BUN/Creatinine Ratio 17.8, CBC w Diff NO MAN DIFF REQ, RBC 4.75, MCV 81.5, MCH 25.9 L, MCHC 31.7 L, RDW 17.1 H, MPV 8.1, Gran % 74.1, Lymphocytes % 13.0 L, Monocytes % 9.7 H, Eosinophils % 2.4, Basophils % 0.8, Absolute Granulocytes 5.4, Absolute Lymphocytes 0.9 L, Absolute Monocytes 0.7 H, Absolute Eosinophils 0.2, Absolute Basophils 0.1 05/22/17 0550: Anion Gap 7, Estimated GFR > 60, BUN/Creatinine Ratio 17.8, CBC w Diff NO MAN DIFF REQ, RBC 4.65, MCV 81.6, MCH 25.4 L, MCHC 31.1 L, RDW 17.4 H, MPV 8.1, Gran % 70.1, Lymphocytes % 18.1 L, Monocytes % 8.9, Eosinophils % 2.7, Basophils % 0.2, Absolute Granulocytes 5.3, Absolute Lymphocytes 1.4, Absolute Monocytes 0.7 H, Absolute Eosinophils 0.2, Absolute Basophils 0 Recent Imaging Studies: Telemetry tracings were personally reviewed and showed atrial fibrillation with grossly controlled ventricular response rate Assessment/Plan Assessment/Plan 1. Respiratory insufficiency which is likely multifactorial 2. Acute on chronic diastolic heart failure likely due to recent noncompliance with Lasix along with dietary noncompliance 3. History of mild nonischemic cardiomyopathy now with normalized ejection fraction of 55% 4. History of persistent atrial fibrillation on Pradaxa 6. Morbid obesity 7. Obstructive sleep apnea with reported intolerance to CPAP 8. Diabetes/hypertension/hyperlipidemia 9. Venous insufficiency likely due to obesity Patient is doing well on oral Lasix. Discussed the importance of compliance with Lasix and dietary restrictions. Heart rate remains recently well controlled. Continue anticoagulation. Consider outpatient bariatric consultation. Jonas López MD [facility] Continue telemetry? No
[2017-05-23 18:00] VITALS: BP 98/58
--- NOTE | 2017-05-23 18:05 | Patient Discharge Instructions ---
Discharge Instructions General Discharge Information You were seen/treated for: 1. Acute hypoxic respiratory failure seems multifactorial from a combination of heart failure, pulmonary hypertension, sleep apnea and possible OHS. 2. Acute exacerbation of chronic HfrEF 2/2 medication and dietary noncompliance Special Instructions: Follow-up with PCP in one week after discharge Follow-up with web services professional in 1 week after discharge Follow up with inspector printed circuit boards in 1-2 weeks after discharge for obstructive sleep apnea workup Diet Continue normal diet: Yes Recommended Diet: Heart Healthy Activity Full Activity/No Limits: Yes Acute Coronary Syndrome Inclusion Criteria At DC or during hospital stay patient has or had the following: ACS DIAGNOSIS No Discharge Core Measures Meds if any: Prescribed or Continued at Discharge Meds if any: NOT Prescribed or Continued at Discharge Congestive Heart Failure Inclusion Criteria At DC or during hospital stay patient has or had the following: CHF DIAGNOSIS No Discharge Core Measures Meds if any: Prescribed or Continued at Discharge Meds if any: NOT Prescribed or Continued at Discharge Cerebrovascular accident Inclusion Criteria At DC or during hospital stay patient has or had the following: CVA/TIA Diagnosis No Discharge Core Measures Meds if any: Prescribed or Continued at Discharge Meds if any: NOT Prescribed or Continued at Discharge Venous thromboembolism Inclusion Criteria VTE Diagnosis No VTE Type NONE VTE Confirmed by (Test) NONE Discharge Core Measures - Per Current guidelines, there needs to be overlap - treatment for the first 5 days of Warfarin therapy. - If discharged on Warfarin prior to 5 days of - overlap therapy, the patient will need to be - assessed for post discharge needs including - *Post discharge parental anticoagulation - *Warfarin and/or parental anticoagulation education - *Follow up date to check INR post discharge At least 5 days overlap therapy as Inpatient Yes Meds if any: Prescribed or Continued at Discharge Note: Overlap Therapy is Warfarin and Anticoagulant Meds if any: NOT Prescribed or Continued at Discharge
[2017-05-24 00:30] VITALS: BP 120/68
[2017-05-24 04:21] LABS: ABSOLUTE BASOPHIL COUNT 0 /CUMM (0.0-0.2); ABSOLUTE EOSINOPHIL COUNT 0.2 /CUMM (0.0-0.7); ABSOLUTE GRANULOCYTE CT 5.6 /CUMM (1.4-6.5); ABSOLUTE LYMPH COUNT 1.1 /CUMM (1.2-3.4); ABSOLUTE MONOCYTE COUNT 0.6 /CUMM (0.10-0.60); BASOPHIL % 0.5 % (0.0-2.0); EOSINOPHIL % 3.1 % (0-5); GRANULOCYTE % 73.9 % (42.2-75.2); HEMATOCRIT 40.4 % (37-47); MEAN CORPUSCULAR HGB 25.9 PG (27.0-31.0); MEAN CORPUSCULAR HGB CONC 31.7 G/DL (33.0-37.0); MEAN CORPUSCULAR VOLUME 81.9 FL (81.0-99.0); PLATELET COUNT 295 /CUMM (130-400); RED BLOOD CELL CT 4.94 /CUMM (4.20-5.40); WHITE BLOOD CELL COUNT 7.6 /CUMM (4.8-10.8)
--- NOTE | 2017-05-24 07:10 | PN- Housestaff ---
See Addendum Subjective Follow-up For: 1. Acute hypoxic respiratory failure seems multifactorial from a combination of heart failure, pulmonary hypertension, sleep apnea and possible OHS. 2. Acute exacerbation of chronic HfrEF 2/2 medication and dietary noncompliance 3. MUSHTAQ noncompliant with CPAP 4. Pulmonary hypertension, mild to moderate mitral regurgitation 5. Possible underlying Obesity hypoventilation syndrome 6. Chronic Afib on pradaxa 7. Traumatic bleeding while on anticoagulants bleeding controlled 8. Type 2 diabetes and essential hypertension HEMATURIA Complaints: pain scale (0-10) Tele-Events Since Last Visit: Telemetry monitoring uneventful Atrial fibrillation rate under control Subjective: She was seen and examined this morning. She is alert awake and oriented 3. No acute events noticed overnight. Patient reports shortness of breath with exertion. Continues to report orthopnea and paroxysmal nocturnal dyspnea. Denies any fever, chills, chest pain or pressure, palpitations. Continues to have lower extremity edema Patient reports hematuria for one day. Foleys catheter was removed on 2017. Denies any traumatic catheterization. Off note she is on PRADAXA for atrial fibrillation Vitals were within normal limits afebrile, heart rate 86, respiratory rate 18, blood pressure 115/60, saturating at 96 on RA Review of Systems Constitutional: Reports: see HPI. Objective Last 24 Hrs of Vital Signs/I&O Vital Signs Date Time Temp Pulse Resp B/P B/P Pulse O2 O2 Flow FiO2 Mean Ox Delivery Rate 05/24 1130 97.6 104 20 116/70 94 Room Air 05/24 1052 94 Room Air 05/24 0800 97.6 82 18 110/74 94 Room Air 05/24 0030 97.8 89 20 120/68 96 05/23 2141 97.2 102 20 120/60 05/23 2141 97.5 102 20 120/60 05/23 1800 97.5 97 22 98/58 96 Room Air 05/23 1600 92 Room Air Intake & Output 05/24 1600 05/24 0800 05/24 0000 Intake Total 120 460 Output Total 650 1100 Balance -530 -640 Intake, Oral 120 460 Number 1 Bowel Movements Output, Urine 650 1100 Patient 144.951 kg Weight Weight Bed scale Measurement Method Physical Exam General Appearance: Alert, Oriented X3, Cooperative, No Acute Distress Other Physical Findings: morbidly obese, no respiratory distress MMM, JVD+ Chest b/l reduced air entry and few left basilar crackles, no wheeze or rhonchi Heart S1S2 irregularly irregular, systolic murmur+ Abd soft, non tender. LE: b/l 2++ pitting pedal edema chronic venous stasis skin changes with chronic wounds, no evidence of cellulitis. Peripheral pulse+. Fungal rash noted under bilateral breasts (right side is healing, left side is active and erythematous). Current Medications: Current Medications Sig/Dolly Start time Last Medication Dose Route Stop Time Status Admin Acetaminophen 650 MG Q6P PRN 05/20 2130 AC PO Albuterol Sulfate 2 PUF Q4P PRN 05/21 0900 AC INH Atorvastatin Calcium 20 MG QPM 05/21 2100 AC 05/23 PO 2141 Dabigatran 150 MG BID 05/21 09 AC 05/24 PO 1140 Furosemide 40 MG DAILY 05/22 0900 AC 05/24 PO 1140 Hydrochlorothiazide 25 MG DAILY 05/21 09 AC 05/24 PO 1140 Insulin Aspart 0 TIDAC 05/21 1200 AC 05/21 SC 1223 Ketoconazole 1 OLGA BID 05/21 0900 AC 05/24 TOP 1140 Lisinopril 20 MG BID 05/21 0900 AC 05/24 PO 1140 Metoprolol Tartrate 100 MG BID 05/21 09 AC 05/24 PO 1140 Last 24 Hrs of Lab/Tereso Results Last 24 Hrs of Labs/Mics: Laboratory Tests 05/24/17 0345: Anion Gap 12, Estimated GFR 56 L, BUN/Creatinine Ratio 16.0, CBC w Diff NO MAN DIFF REQ, RBC 4.94, MCV 81.9, MCH 25.9 L, MCHC 31.7 L, RDW 17.0 H, MPV 8.0, Gran % 73.9, Lymphocytes % 14.3 L, Monocytes % 8.2, Eosinophils % 3.1, Basophils % 0.5, Absolute Granulocytes 5.6, Absolute Lymphocytes 1.1 L, Absolute Monocytes 0.6, Absolute Eosinophils 0.2, Absolute Basophils 0 Assessment/Plan Assessment: 67 yo morbidly obese F with h/o HTN, T2DM, Afib on Pradaxa, chronic HfrEF, MUSHTAQ noncompliant with CPAP, ?asthma, presented to the ER for evaluation of bleeding from the dorsum of her foot after she tried to use a callus michelle. In the ER, bleeding was controlled with surgicel and pressure dressing. However, patient was notably dyspneic and dropped her sats to 88% on RA on ambulation, hence further evaluation was done. she was admitted to ICU as tele hold for management of acute on chronic heart failure. Vitals: afebrile, HR 90-110's, BP 143/96, sats 96% RA --> 88% RA on ambulation, 87-88% RA while sleeping placed on 2L. Labs: no leukocytosis, D-dimer 261, Na 148, bicarb 31, glucose 105, trop neg, proBNP 1900, TSH and free T4 normal. CXR: cardiomegaly, pulmonary venous congestion and interstitial edema in lower lungs. EKG: afib @ 108, Qtc 494. Echo (2015): EF 45-50%, mild left ventricular dilatation, mild to moderate MR, mild TR, RVSP 49 mmHg. Assessment and plan: 1. Acute hypoxic respiratory failure seems multifactorial from a combination of heart failure, pulmonary hypertension, sleep apnea and possible OHS. 2. Acute exacerbation of chronic HfrEF 2/2 medication and dietary noncompliance 3. MUSHTAQ noncompliant with CPAP 4. Pulmonary hypertension, mild to moderate mitral regurgitation 5. Possible underlying Obesity hypoventilation syndrome 6. Chronic Afib on pradaxa 7. Traumatic bleeding while on anticoagulants bleeding controlled 8. Type 2 diabetes and essential hypertension -------- 1. Acute exacerbation of chronic heart failure with reduced ejection fraction she has history of heart failure with reduced ejection fraction. Patient is supposed to take Lasix 40 mg and hydrochlorothiazide 25 daily. However patient has not been taking her medications for last 2 weeks. Patient also reports weight gain for last few months from dietary noncompliance. Patient presented with worsening shortness of breath, orthopnea, paroxysmal nocturnal dyspnea, weight gain, hypoxic requiring oxygen supplementation. CXR showed cardiomegaly, pulmonary venous congestion and interstitial edema in lower lungs. Acute exacerbation of chronic heart failure from dietary noncompliance, medication noncompliance. * Admit to telemetry * Continuous telemetry monitoring * Monitor vitals every shift * Started IV Lasix 40 daily later switched to oral Lasix 40 daily. * Daily ins and outs * Strict weights * 2 g sodium restriction diet * Echocardiogram showed No obvious regional wall motion abnormalities. 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 patient was notably dyspneic and dropped her sats to 88% on RA on ambulation, hence further evaluation was done. Patient has chronic baseline dyspnea, but according to family, dyspnea has gradually progressed over past 3-6 months, worse on exertion (taking few steps at home) and even during a normal conversation. Patient reports orthopnea and PND. She denies cough, fever, chills , chest pain or palpitations. * Hypoxic respiratory failure requiring 2 L oxygen supplementation most likely multifactorial from combination of acute on chronic heart failure, pulmonary hypertension, obstructive sleep apnea, OHS. * Monitor vitals every shift * Provide oxygen supplementation to maintain saturation above 90 * saturating well on RA today MUSHTAQ She is supposed to use her CPAP machine but is unable to tolerate it and machine was pricey despite insurance so she stopped using it. She was seeing Dr. Cox (Pulm at [place]) who diagnosed her with asthma but patient did not follow up since. * CPAP at nighttime * Patient is requesting for a new pulmonology referral for outpatient follow-up and sleep study * Patient is willing to see Dr. Feliz as an outpatient * Will provide pulmonary referral at the time of discharge HEMATURIA Patient has been having blood in urine for past 24 hours. Of note catheter was removed on 05/23/2017. She denies any traumatic catheterization. She denies any pain during urination, frequency, urgency, lower abdomen pain, bilateral flank pain. No CVA tenderness. Off note patient is on anticoagulation pradaxa for atrial fibrillation. * Will hold Pradaxa for now * Patient is nothing by mouth now * Urology on board * Patient will be getting cystoscopy this evening * Will get urinalysis and urine cytology * Renal ultrasound * X-ray KUB Chronic atrial fibrillation- continue Pradaxa 150 twice daily and metoprolol 100 twice a day COPD continue TRC nebs Hyperlipidemia continue Lipitor 20 daily hypertension continue lisinopril 20 twice a day Diabetes mellitus please hold metformin, Accu-Cheks, NovoLog sliding scale was ordered chronic venous stasis LE: b/l 2++ pitting pedal edema extending up into the thigh and abdomen, chronic venous stasis skin changes with chronic wounds, no evidence of cellulitis. * Wound care consulted * Daily dressings Fungal rash Continue cyclopirox and hydrocortisone for local tinea fungal infection under bilateral breast as prescribed by Senior Quality Engineer * Diet: Heart Healthy. * DVT Prophylaxis: On Pradaxa * Code: Full Code Problem List: 1. CHF (congestive heart failure) Pain Ratin Pain Location: n/a Pain Goal: Remain pain free Pain Plan: n/A Tomorrow's Labs & Rationales: CBC BEP
[2017-05-24 08:00] VITALS: BP 110/74
--- NOTE | 2017-05-24 10:52 | PN- Cardiology ---
Subjective Subjective: Telemetry reviewed . Atrial fibrillation with rates 80-100. No cardiac issues overnight. Objective Vital Signs and I&Os Vital Signs Date Time Temp Pulse Resp B/P B/P Pulse O2 O2 Flow FiO2 Mean Ox Delivery Rate 05/24 08 97.6 82 18 110/74 94 Room Air 05/24 0030 97.8 89 20 120/68 96 05/23 2141 97.2 102 20 120/60 05/23 2141 97.5 102 20 120/60 05/23 1800 97.5 97 22 98/58 96 Room Air 05/23 1600 92 Room Air Intake & Output 05/24 1600 05/24 0800 05/24 0000 05/23 1600 05/23 0800 05/23 0000 Intake Total 120 460 480 120 800 Output Total 650 2987 298 0764 1900 Balance -530 -640 280 -880 -1100 Intake, IV Intake, Oral 120 460 480 120 800 Number 1 3 Bowel Movements Output, Urine 650 3528 558 5932 1900 Physical Exam: On physical exam is morbidly obese Head normocephalic atraumatic Eyes sclera anicteric conjunctiva showed no pallor extraocular muscles were normal Neck no jugular venous distention no thyroid masses no palpable nodes Chest lungs are clear bilaterally Heart irregular rhythm with a ventricular rate of around 100. Abdomen hugely protuberant bowel sounds normal Extremities chronic edema legs and wrapping Neurological no gross motor or sensory deficit Current Medications: Current Medications Sig/Dolly Start time Last Medication Dose Route Stop Time Status Admin Acetaminophen 650 MG Q6P PRN 05/20 2130 AC PO Albuterol Sulfate 2 PUF Q4P PRN 05/21 0900 AC INH Atorvastatin Calcium 20 MG QPM 05/21 2100 AC 05/23 PO 2141 Dabigatran 150 MG BID 05/21 0900 AC 05/23 PO 2141 Furosemide 40 MG DAILY 05/22 0900 AC 05/23 PO 0932 Hydrochlorothiazide 25 MG DAILY 05/21 0900 AC 05/23 PO 0932 Insulin Aspart 0 TIDAC 05/21 1200 AC 05/21 SC 1223 Ketoconazole 1 OLGA BID 05/21 0900 AC 05/23 TOP 2144 Lisinopril 20 MG BID 05/21 0900 AC 05/23 PO 2141 Metoprolol Tartrate 100 MG BID 05/21 0900 AC 05/23 PO 2141 Results Last 48 Hrs of Labs/Mics: Laboratory Tests 05/24/17 0345: Anion Gap 12, Estimated GFR 56 L, BUN/Creatinine Ratio 16.0, CBC w Diff NO MAN DIFF REQ, RBC 4.94, MCV 81.9, MCH 25.9 L, MCHC 31.7 L, RDW 17.0 H, MPV 8.0, Gran % 73.9, Lymphocytes % 14.3 L, Monocytes % 8.2, Eosinophils % 3.1, Basophils % 0.5, Absolute Granulocytes 5.6, Absolute Lymphocytes 1.1 L, Absolute Monocytes 0.6, Absolute Eosinophils 0.2, Absolute Basophils 0 05/23/17 0556: Anion Gap 11, Estimated GFR > 60, BUN/Creatinine Ratio 17.8, CBC w Diff NO MAN DIFF REQ, RBC 4.75, MCV 81.5, MCH 25.9 L, MCHC 31.7 L, RDW 17.1 H, MPV 8.1, Gran % 74.1, Lymphocytes % 13.0 L, Monocytes % 9.7 H, Eosinophils % 2.4, Basophils % 0.8, Absolute Granulocytes 5.4, Absolute Lymphocytes 0.9 L, Absolute Monocytes 0.7 H, Absolute Eosinophils 0.2, Absolute Basophils 0.1 Assessment/Plan Assessment/Plan In summary this 67 year old patient admitted with the following problems. 1. Respiratory insufficiency which is likely multifactorial 2. Acute on chronic diastolic heart failure likely due to recent noncompliance with Lasix along with dietary noncompliance 3. History of mild nonischemic cardiomyopathy now with normalized ejection fraction of 55% 4. History of persistent atrial fibrillation on Pradaxa 6. Morbid obesity 7. Obstructive sleep apnea with reported intolerance to CPAP 8. Diabetes/hypertension/hyperlipidemia 9. Venous insufficiency likely due to obesity Patient seems to be at baseline. Social service disposition for unsatisfactory home situation. O2 sats satisfactory on Room air. Major dietary and salt non compliance. Continue telemetry? Yes
[2017-05-24 11:30] VITALS: BP 116/70
--- NOTE | 2017-05-24 15:36 | ULTRASOUND REPORT ---
EXAMINATION: US RETROPERITONEAL COMPLETE (RENAL) CLINICAL INFORMATION: Painful urination. COMPARISON: None TECHNIQUE: Real-time imaging of the kidneys and bladder. Limited study due to portable technique, body habitus, inability to properly position the patient and patient limited ability to follow breathing instructions. FINDINGS: RIGHT KIDNEY: 11.9 x 5.1 x 5.4 cm (SAG x AP x TRV). The kidney is normal in size, contour, and echogenicity. Renal cortical thickness is normal. No calculi or focal parenchymal lesions. No hydronephrosis. LEFT KIDNEY: Unable to visualize. BLADDER: Well-distended and normal. Bilateral ureteral jets are demonstrated. Prevoid bladder volume is 70 mL. IMPRESSION: Technically limited study. The right kidney appears normal. The left kidney was not visualized.
--- NOTE | 2017-05-24 15:59 | RADIOLOGY REPORT ---
EXAMINATION: XR KIDNEYS, URETER, BLADDER CLINICAL INDICATION: Hematuria. COMPARISON: Renal ultrasound dated 05/24/2017 was reviewed. Pelvic radiograph dated 05/18/2016. TECHNIQUE: AP view of the abdomen. FINDINGS: There are 3 peripherally calcified gallstones measuring up to 2.3 cm in diameter. There are no obvious calcifications within the expected region of the kidneys to indicate nephrolithiasis. The bowel gas pattern is nonobstructive. There are severe degenerative changes of the hips characterized by joint space narrowing, subchondral sclerosis and osteophytosis. There is widening of the symphysis pubis, similar to x-ray dated 05/18/2016. IMPRESSION: Cholelithiasis. No definite nephrolithiasis.
[2017-05-24 16:00] VITALS: BP 110/76
--- NOTE | 2017-05-24 17:38 | Cons- Urology ---
General Information and HPI Consulting Request Date of Consult: 05/24/17 Requested By: Harry Menon MD Reason for Consult: gross hematuria Source of Information: patient, old records Exam Limitations: no limitations History of Present Illness: 67 yr old with foot surgeries: admitted to ICU post podiatric issues due to excess fluid (CHF) Atrial fibrillation. noted to have gross hematuria after hopkins removal. here for cysto. Allergies/Medications Allergies: Coded Allergies: NO KNOWN ALLERGIES (09/19/12) NKA PER ANTIBIOTIC ORDER SHEET OF 09/20/12 - [facility] Home Med List: Albuterol Sulfate (Proair Hfa) 90 MCG HFA.AER.AD 2 PUF INH PRN RESPIRATORY ( Reported) Atorvastatin Calcium 20 MG TABLET 1 TAB PO QPM CHOLESTEROL (Reported) Ciclopirox Olamine (Ciclopirox) 0.77 % CREAM..G. 1 OLGA TOP BID SKIN (Reported ) apply to affected area(s) Dabigatran Etexilate Mesylate (Pradaxa 150 MG) 150 MG CAPSULE 1 CAP PO BID BLOOD THINNER (Reported) Furosemide 40 MG TABLET 1 TAB PO PRN DIURETIC (Reported) Hydrochlorothiazide 25 MG TABLET 1 TAB PO DAILY DIURETIC (Reported) Hydrocortisone 2.5 % CREAM..G. 1 OLGA TOP BID ITCHING (Reported) apply to affected area(s) Lisinopril 20 MG TABLET 1 TAB PO BID BP (Reported) Metformin HCl (Metformin HCl ER) 500 MG TAB.ER.24H 2 TAB PO BID PRE-DIABETIC (Reported) Metoprolol Tartrate (Unknown Strength) TABLET (Unknown Dose) PO BID HEART/BP (Reported) Mv-Min/Vit C/Glu/[place]upe HCl/Hc124 (Airborne Effervescent Tablet) 1,000 MG-50 MG TABLET.EFF 1 TAB PO DAILY SUPPLEMENT (Reported) Sodium Fluoride (Sf 5000 Plus) 1.1 % CREAM..G. 1 OLGA PO BID TEETH (Reported) Current Medications: Current Medications Sig/Dolly Start time Last Medication Dose Route Stop Time Status Admin Acetaminophen 650 MG Q6P PRN 05/20 2130 AC PO Albuterol Sulfate 2 PUF Q4P PRN 05/21 0900 AC INH Atorvastatin Calcium 20 MG QPM 05/21 2100 AC 05/23 PO 2141 Dabigatran 150 MG BID 05/21 0900 AC 05/24 PO 1140 Furosemide 40 MG DAILY 05/22 0900 AC 05/24 PO 1140 Hydrochlorothiazide 25 MG DAILY 05/21 0900 AC 05/24 PO 1140 Insulin Aspart 0 TIDAC 05/21 1200 AC 05/21 SC 1223 Ketoconazole 1 OLGA BID 05/21 09 AC 05/24 TOP 1140 Lisinopril 20 MG BID 05/21 0900 AC 05/24 PO 1140 Metoprolol Tartrate 100 MG BID 05/21 09 AC 05/24 PO 1140 Past History Medical History Blood Transfusion Hx: No Neurological: NONE EENT: NONE Cardiovascular: hypertension, ELEVATED CHOLESTEROL Respiratory: NONE Gastrointestinal: NONE Hepatic: NONE Renal: NONE Musculoskeletal: NONE Psychiatric: NONE Endocrine: diabetes Blood Disorders: NONE Cancer(s): NONE 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 EENTM: Denies: no symptoms. Cardiovascular: Reports: see HPI. Respiratory: Denies: no symptoms. Genitourinary: Reports: hematuria. Musculoskeletal: Reports: see HPI. Exam & Diagnostic Data Vital Signs and I&O Vital Signs Date Time Temp Pulse Resp B/P B/P Pulse O2 O2 Flow FiO2 Mean Ox Delivery Rate 05/24 1600 Room Air 05/24 1600 97.3 97 20 110/76 97 Room Air 05/24 1130 97.6 104 20 116/70 94 Room Air 05/24 1052 94 Room Air 05/24 0800 97.6 82 18 110/74 94 Room Air 05/24 0030 97.8 89 20 120/68 96 05/23 2141 97.2 102 20 120/60 05/23 2141 97.5 102 20 120/60 05/23 1800 97.5 97 22 98/58 96 Room Air Intake & Output 05/24 1600 05/24 0800 05/24 0000 05/23 1600 05/23 0800 05/23 0000 Intake Total 360 120 460 480 120 800 Output Total 560 409 3096 200 1000 1900 Balance -140 -530 -640 280 -880 -1100 Intake, IV Intake, Oral 360 120 460 480 120 800 Number 1 3 Bowel Movements Output, Urine 610 589 2685 200 1000 1900 Patient 320 lb Weight Weight Bed scale Measurement Method Physical Exam General Appearance: well developed/nourished, obese Head: atraumatic Eyes: Bilateral: normal appearance. Neck: normal inspection Respiratory: normal breath sounds Cardiovascular: irregularly irregular Gastrointestinal: normal bowel sounds, soft, non-tender Back: no vertebral tenderness Reproductive: Normal female genitalia Last 24 Hours of Labs: Laboratory Tests 05/24 05/24 1200 0345 Chemistry Sodium (137 - 145 mmol/L) 142 Potassium (3.5 - 5.1 mmol/L) 3.9 Chloride (98 - 107 mmol/L) 99 Carbon Dioxide (22 - 30 mmol/L) 31 H Anion Gap (5 - 16) 12 BUN (7 - 17 mg/dL) 16 Creatinine (0.5 - 1.0 mg/dL) 1.0 Estimated GFR (>60 ml/min) 56 L BUN/Creatinine Ratio (7 - 25 %) 16.0 Hematology CBC w Diff NO MAN DIFF REQ WBC (4.8 - 10.8 /CUMM) 7.6 RBC (4.20 - 5.40 /CUMM) 4.94 Hgb (12.0 - 16.0 G/DL) 12.8 Hct (37 - 47 %) 40.4 MCV (81.0 - 99.0 FL) 81.9 MCH (27.0 - 31.0 PG) 25.9 L MCHC (33.0 - 37.0 G/DL) 31.7 L RDW (11.5 - 14.5 %) 17.0 H Plt Count (130 - 400 /CUMM) 295 MPV (7.4 - 10.4 FL) 8.0 Gran % (42.2 - 75.2 %) 73.9 Lymphocytes % (20.5 - 51.1 %) 14.3 L Monocytes % (1.7 - 9.3 %) 8.2 Eosinophils % (0 - 5 %) 3.1 Basophils % (0.0 - 2.0 %) 0.5 Absolute Granulocytes (1.4 - 6.5 /CUMM) 5.6 Absolute Lymphocytes (1.2 - 3.4 /CUMM) 1.1 L Absolute Monocytes (0.10 - 0.60 /CUMM) 0.6 Absolute Eosinophils (0.0 - 0.7 /CUMM) 0.2 Absolute Basophils (0.0 - 0.2 /CUMM) 0 Urines Urine Color (YEL,AMB,STR) BLDY H Urine Clarity (CLEAR) CLDY H Urine pH (5.0 - 8.0) 8.0 Ur Specific [place] (1.001 - 1.035) 1.010 Urine Protein (NEG,<30 MG/DL) NEG Urine Ketones (NEG) NEG Urine Nitrite (NEG) NEG Urine Bilirubin (NEG) NEG Urine Urobilinogen (0.1 - 1.0 EU/dl) 0.2 Ur Leukocyte Esterase (NEG) NEG Ur Microscopic SEDIMENT EXAMINED Urine RBC (0 - 5 /HPF) >75 H Ur Epithelial Cells (NONE,FEW) FEW Urine Hemoglobin (NEG) LARGE H Urine Glucose (N MG/DL) NEG Imaging Results: PATIENT: NISREEN MIRANDA PRESENT AGE: 67 PATIENT ACCOUNT NO: [id number] : 52 LOCATION: [facility] ORDERING PHYSICIAN: Marce Castro MD SERVICE DATE: 05/24/17- EXAM TYPE: US - US-RENAL/KIDNEY EXAMINATION: US RETROPERITONEAL COMPLETE (RENAL) CLINICAL INFORMATION: Painful urination. COMPARISON: None TECHNIQUE: Real-time imaging of the kidneys and bladder. Limited study due to portable technique, body habitus, inability to properly position the patient and patient limited ability to follow breathing instructions. FINDINGS: RIGHT KIDNEY: 11.9 x 5.1 x 5.4 cm (SAG x AP x TRV). The kidney is normal in size, contour, and echogenicity. Renal cortical thickness is normal. No calculi or focal parenchymal lesions. No hydronephrosis. LEFT KIDNEY: Unable to visualize. BLADDER: Well-distended and normal. Bilateral ureteral jets are demonstrated. Prevoid bladder volume is 70 mL. IMPRESSION: Technically limited study. The right kidney appears normal. The left kidney was not visualized. DICTATED BY: Jair Torrez MD DATE/TIME DICTATED:05/24/171520 PHTHALIC ACID PURIFIER:ESPERANZA DATE/TIME TRANSCRIBED:05/24/171520 CONFIDENTIAL, DO NOT COPY WITHOUT APPROPRIATE AUTHORIZATION. <Electronically signed in Other Vendor System> SIGNED BY: Jair Torrez MD [id number] Assessment/Plan Assessment/Plan hematuria/cystoscopy before dc home Copies To: Sundar Nugyen MD Consult Acknowledgment - Thank you for your consult request. Attending MD Review Statement Attending Statement Attending MD Statement: examined this patient, discuss w/resident/PA/INSPECTION CLERK Attending Assessment/Plan: cysto. today
[2017-05-24 19:43] VITALS: BP 110/84
[2017-05-24 22:35] VITALS: BP 108/68
[2017-05-25 06:47] VITALS: BP 104/00
--- NOTE | 2017-05-25 07:21 | PN- Urology ---
Surgical Brief Attending Note Brief Attending Note: PT WITH HEMATURIA FROM RAMOS TRAUMA: NO TUMOR, NO STONE IN BLADDER. DC PER MED.
--- NOTE | 2017-05-25 07:27 | Operative Report ---
Operative/Inv Procedure Report Surgery Date: 05/24/17 Name of Procedure: CYSTOSCOPY: Pre-Operative Diagnosis: HEMATURIA Post-Operative Diagnosis: HEMATURIA Estimated Blood Loss: scant Surgeon/Percussion Tuner: mD Lisandra, JACQUELINE-UROLOGY Anesthesia: laryngeal mask airway Drains: NONE Specimens: NONE Complications: NONE Operative/Procedure Note Note: The patient was taken to the operative room and placed on the OR table in supine position. Timeout was performed in order to confirm the patient's identity, procedure, anesthesia, antibiotics, as well as any other pertinent information. After adequate anesthesia, and antibiotics, the patient was then placed lithotomy stirrups draped and prepped in the usual surgical fashion. A 22 [place] cystoscope sheath with a 30 angle lens was inserted into the urethra and advanced into the bladder without difficulty. The bladder was noted to have the findings as discussed above. The bladder was then hydrodistended 2 with the irrigation fluid at 40 cm above the symphysis pubis. No evidence of tumor, increased petechiae, nor Hunner's ulceration was noted. Both ureteral orifices had clear reflux in their orthotopic position. No terminal bleed with drainage. Bladder capacity was normal. The bladder was then drained and the cystoscope was removed under direct visualization. The patient tolerated procedure well and was taken to recovery room in satisfactory condition. Findings: NO BLADDER TUMOR, NO STONE: ERYTHEMATOUS MUCOSA CONSISTENT WITH RAMOS USE PREVIOUSLY Discharge Disposition: PACU Additional Comments: DC HOME PER MED. CC: Jacqueline Nguyen MD
--- NOTE | 2017-05-25 07:35 | Cons- Urology ---
General Information and HPI Consulting Request Date of Consult: 05/24/17 Requested By: Harry Menno MD Reason for Consult: HEMATURIA Source of Information: patient, old records Exam Limitations: no limitations History of Present Illness: 67 YR OLD WITH MULTIPLE MED. PROBLEMS, HAD PROCEDURE ON FEET WITH BRISK BLEEDING : ADMITTED FOR TX/EVAL. NOTED TO HAVE GROSS HEMATURIA WITH RAMOS INSERTION. Allergies/Medications Allergies: Coded Allergies: NO KNOWN ALLERGIES (09/19/12) NKA PER ANTIBIOTIC ORDER SHEET OF 09/20/12 - S Home Med List: Albuterol Sulfate (Proair Hfa) 90 MCG HFA.AER.AD 2 PUF INH PRN RESPIRATORY ( Reported) Atorvastatin Calcium 20 MG TABLET 1 TAB PO QPM CHOLESTEROL (Reported) Ciclopirox Olamine (Ciclopirox) 0.77 % CREAM..G. 1 OLGA TOP BID SKIN (Reported ) apply to affected area(s) Dabigatran Etexilate Mesylate (Pradaxa 150 MG) 150 MG CAPSULE 1 CAP PO BID BLOOD THINNER (Reported) Furosemide 40 MG TABLET 1 TAB PO PRN DIURETIC (Reported) Hydrochlorothiazide 25 MG TABLET 1 TAB PO DAILY DIURETIC (Reported) Hydrocortisone 2.5 % CREAM..G. 1 OLGA TOP BID ITCHING (Reported) apply to affected area(s) Lisinopril 20 MG TABLET 1 TAB PO BID BP (Reported) Metformin HCl (Metformin HCl ER) 500 MG TAB.ER.24H 2 TAB PO BID PRE-DIABETIC (Reported) Metoprolol Tartrate (Unknown Strength) TABLET (Unknown Dose) PO BID HEART/BP (Reported) Mv-Min/Vit C/Glu/[place] HCl/Hc124 (Airborne Effervescent Tablet) 1,000 MG-50 MG TABLET.EFF 1 TAB PO DAILY SUPPLEMENT (Reported) Sodium Fluoride (Sf 5000 Plus) 1.1 % CREAM..G. 1 OLGA PO BID TEETH (Reported) Current Medications: Current Medications Sig/Dolly Start time Last Medication Dose Route Stop Time Status Admin Acetaminophen 650 MG .STK-MED ONE 05/24 1958 DC PO 05/25 1999 Acetaminophen 650 MG Q6P PRN 05/20 2130 AC 05/24 PO 1999 Albuterol Sulfate 2 PUF Q4P PRN 05/21 09 AC INH Atorvastatin Calcium 20 MG QPM 05/21 2100 AC 05/24 PO 2007 Dabigatran 150 MG BID 05/21 0900 AC 05/24 PO 2256 Fentanyl Citrate 100 MCG .STK-MED ONE 05/24 1733 DC IM 05/24 1734 Furosemide 40 MG DAILY 05/22 0900 AC 05/24 PO 1140 Hydrochlorothiazide 25 MG DAILY 05/21 09 AC 05/24 PO 1140 Insulin Aspart 0 TIDAC 05/21 1200 AC 05/21 SC 1223 Ketoconazole 1 OLGA BID 05/21 09 AC 05/24 TOP 2303 Lisinopril 20 MG BID 05/21 09 AC 05/24 PO 2255 Metoprolol Tartrate 100 MG BID 05/21 0900 AC 05/24 PO 2006 Past History Medical History Blood Transfusion Hx: No Neurological: NONE EENT: NONE Cardiovascular: hypertension, ELEVATED CHOLESTEROL Respiratory: NONE Gastrointestinal: NONE Hepatic: NONE Renal: NONE Musculoskeletal: NONE Psychiatric: NONE Endocrine: diabetes Blood Disorders: NONE Cancer(s): NONE OPERATIONS ACCOUNTANT/Reproductive: NONE Surgical History Pertinent Surgical History: sinus surgery, Lasix eye surgery Family History Relations & Conditions If Any: MOTHER Cardiac edema Psychosocial History Primary Language: Israeli Smoking Status: Former Smoker ETOH Use: denies use Illicit Drug Use: denies illicit drug use Review of Systems Review of Systems Constitutional: Denies: no symptoms. EENTM: Denies: no symptoms. Cardiovascular: Denies: no symptoms. Respiratory: Denies: no symptoms. Genitourinary: Reports: hematuria. Neurological/Psychological: Denies: no symptoms. Exam & Diagnostic Data Vital Signs and I&O Vital Signs Date Time Temp Pulse Resp B/P B/P Pulse O2 O2 Flow FiO2 Mean Ox Delivery Rate 05/25 0647 97.7 88 22 104/00 93 Room Air 05/24 2255 92 108/68 05/24 2235 98.2 92 18 108/68 91 05/24 2007 84 110/84 05/24 2001 92 Room Air 05/24 1943 97.8 84 24 110/84 89 05/24 1600 Room Air 05/24 1600 97.3 97 20 110/76 97 Room Air 05/24 1130 97.6 104 20 116/70 94 Room Air 05/24 1052 94 Room Air 05/24 0800 97.6 82 18 110/74 94 Room Air Intake & Output 05/25 0800 05/25 0000 05/24 1600 05/24 0800 05/24 0000 05/23 1600 Intake Total 120 240 360 120 460 480 Output Total 600 500 911 444 6311 200 Balance -480 -260 -540 -530 -640 280 Intake, Oral 120 240 360 120 460 480 Number 1 Bowel Movements Output, Urine 600 500 165 883 5707 200 Patient 309 lb 320 lb Weight Weight Bed scale Measurement Method Physical Exam General Appearance: obese Head: atraumatic Respiratory: normal breath sounds Cardiovascular: irregularly irregular Gastrointestinal: normal bowel sounds, MORBID OBESITY Back: no vertebral tenderness Neurologic/Psych: no motor/sensory deficits, awake, alert, oriented x 3 Reproductive: Normal female genitalia Last 24 Hours of Labs: Laboratory Tests 05/25 05/24 0628 1200 Chemistry Sodium Pending Potassium Pending Chloride Pending Carbon Dioxide Pending Anion Gap Pending BUN Pending Creatinine Pending BUN/Creatinine Ratio Pending Hematology CBC w Diff Pending WBC Pending RBC Pending Hgb Pending Hct Pending MCV Pending MCH Pending MCHC Pending RDW Pending Plt Count Pending MPV Pending Urines Urine Color (YEL,AMB,STR) BLDY H Urine Clarity (CLEAR) CLDY H Urine pH (5.0 - 8.0) 8.0 Ur Specific [place] (1.001 - 1.035) 1.010 Urine Protein (NEG,<30 MG/DL) NEG Urine Ketones (NEG) NEG Urine Nitrite (NEG) NEG Urine Bilirubin (NEG) NEG Urine Urobilinogen (0.1 - 1.0 EU/dl) 0.2 Ur Leukocyte Esterase (NEG) NEG Ur Microscopic SEDIMENT EXAMINED Urine RBC (0 - 5 /HPF) >75 H Ur Epithelial Cells (NONE,FEW) FEW Urine Hemoglobin (NEG) LARGE H Urine Glucose (N MG/DL) NEG Imaging Results: PATIENT: NISREEN MIRANDA PRESENT AGE: 67 PATIENT ACCOUNT NO: [id number] : 52 LOCATION: [facility] ORDERING PHYSICIAN: Marce Castro MD SERVICE DATE: 05/24/17- EXAM TYPE: US - US-RENAL/KIDNEY EXAMINATION: US RETROPERITONEAL COMPLETE (RENAL) CLINICAL INFORMATION: Painful urination. COMPARISON: None TECHNIQUE: Real-time imaging of the kidneys and bladder. Limited study due to portable technique, body habitus, inability to properly position the patient and patient limited ability to follow breathing instructions. FINDINGS: RIGHT KIDNEY: 11.9 x 5.1 x 5.4 cm (SAG x AP x TRV). The kidney is normal in size, contour, and echogenicity. Renal cortical thickness is normal. No calculi or focal parenchymal lesions. No hydronephrosis. LEFT KIDNEY: Unable to visualize. BLADDER: Well-distended and normal. Bilateral ureteral jets are demonstrated. Prevoid bladder volume is 70 mL. IMPRESSION: Technically limited study. The right kidney appears normal. The left kidney was not visualized. DICTATED BY: Jair Torrez MD DATE/TIME DICTATED:05/24/171520 OUTREACH ASSOCIATE:ESPERANZA DATE/TIME TRANSCRIBED:05/24/171520 CONFIDENTIAL, DO NOT COPY WITHOUT APPROPRIATE AUTHORIZATION. <Electronically signed in Other Vendor System> SIGNED BY: Jair Torrez MD [id number] Assessment/Plan Assessment/Plan PT WITH GROSS HEAMTURIA: CYSTO PRIOR TO DC HOME Copies To: Sundar Nguyen MD Consult Acknowledgment - Thank you for your consult request. Attending Review Statement Attending Statement Attending Statement: examined this patient, discuss w/resident/PA/BAG [employer]VER Attending Assessment/Plan: PT TO HAVE CYSTOSCOPY TODAY PRIOR TO DC HOME.
[2017-05-25 07:38] LABS: ABSOLUTE BASOPHIL COUNT 0 /CUMM (0.0-0.2); ABSOLUTE EOSINOPHIL COUNT 0.2 /CUMM (0.0-0.7); ABSOLUTE GRANULOCYTE CT 4.5 /CUMM (1.4-6.5); ABSOLUTE MONOCYTE COUNT 0.5 /CUMM (0.10-0.60); BASOPHIL % 0.3 % (0.0-2.0); EOSINOPHIL % 2.9 % (0-5); GRANULOCYTE % 71.7 % (42.2-75.2); HEMATOCRIT 39.8 % (37-47); MEAN CORPUSCULAR HGB CONC 31.8 G/DL (33.0-37.0); MEAN CORPUSCULAR VOLUME 81.7 FL (81.0-99.0); MEAN PLATELET VOLUME 8.1 FL (7.4-10.4); PLATELET COUNT 281 /CUMM (130-400); RBC DISTRIBUTION WIDTH 17.4 % (11.5-14.5); RED BLOOD CELL CT 4.86 /CUMM (4.20-5.40); WHITE BLOOD CELL COUNT 6.3 /CUMM (4.8-10.8)
--- NOTE | 2017-05-25 08:37 | PN- Housestaff ---
Soheila KIMBALL,Sofia 05/25/17 0836: Subjective Follow-up For: 1. Acute hypoxic respiratory failure seems multifactorial from a combination of heart failure, pulmonary hypertension, sleep apnea and possible OHS. 2. Acute exacerbation of chronic HfrEF 2/2 medication and dietary noncompliance 3. MUSHTAQ noncompliant with CPAP 4. Pulmonary hypertension, mild to moderate mitral regurgitation 5. Possible underlying Obesity hypoventilation syndrome 6. Chronic Afib on pradaxa 7. Traumatic bleeding while on anticoagulants bleeding controlled 8. Type 2 diabetes and essential hypertension 9. Hematuria Complaints: no complaints Tele-Events Since Last Visit: afib Subjective: Patient had no events overnight. She notes some pain in her food. She says that her breathing is better but notes some remaining orthopnea. Still with peripheral edema. She had cystoscopy last night. Has continued to have minor hematuria. Patient is back on pradaxa post cystoscopy. Review of Systems Constitutional: Reports: no symptoms. Cardiovascular: Reports: no symptoms. Respiratory: Reports: orthopnea, short of breath. Musculoskeletal: Reports: joint pain. Skin: Reports: lesions. Objective Last 24 Hrs of Vital Signs/I&O Vital Signs Date Time Temp Pulse Resp B/P B/P Pulse O2 O2 Flow FiO2 Mean Ox Delivery Rate 05/25 1438 97.4 82 22 90/62 92 Room Air 05/25 0842 97.7 88 22 106/70 05/25 0842 88 106/70 05/25 0647 97.7 88 22 104/00 93 Room Air 05/24 2255 92 108/68 05/24 2235 98.2 92 18 108/68 91 05/24 2006 84 110/84 05/24 2000 92 Room Air 05/24 1943 97.8 84 24 110/84 89 Intake & Output 05/25 1600 05/25 0800 05/25 0000 Intake Total 480 120 240 Output Total 400 600 900 Balance 80 -480 -660 Intake, Oral 480 120 240 Output, Urine 400 600 900 Patient 309 lb Weight Physical Exam General Appearance: Alert, Oriented X3, Cooperative, No Acute Distress Skin: No Breakdown Skin Temp/Moisture Exam: Warm/Dry Sepsis Skin Exam (color): Normal for Ethnicity HEENT: Atraumatic, PERRLA, EOMI, Mucous Membr. moist/pink Cardiovascular: Normal S1, Normal S2, No Murmurs Lungs: Clear to Auscultation, Normal Air Movement Abdomen: Normal Bowel Sounds, Soft, No Tenderness Neurological: Normal Speech Current Medications: Current Medications Sig/Dolly Start time Last Medication Dose Route Stop Time Status Admin Acetaminophen 650 MG .STK-MED ONE 05/24 1959 DC PO 05/25 1999 Acetaminophen 650 MG Q6P PRN 05/200 AC 05/24 PO 1999 Albuterol Sulfate 2 PUF Q4P PRN 05/21 09 AC INH Atorvastatin Calcium 20 MG QPM 05/21 2100 AC 05/24 PO 2008 Dabigatran 150 MG BID 05/21 0900 AC 05/25 PO 0841 Fentanyl Citrate 100 MCG .STK-MED ONE 05/24 1733 DC IM 05/24 1734 Furosemide 40 MG DAILY 05/22 09 AC 05/25 PO 0843 Hydrochlorothiazide 25 MG DAILY 05/21 09 AC 05/25 PO 0842 Insulin Aspart 0 TIDAC 05/21 1200 AC 05/21 SC 1223 Ketoconazole 1 OLGA BID 05/21 09 AC 05/25 TOP 1328 Lisinopril 20 MG BID 05/21 0900 AC 05/25 PO 0842 Metoprolol Tartrate 100 MG BID 05/21 0900 AC 05/25 PO 0842 Last 24 Hrs of Lab/Tereso Results Last 24 Hrs of Labs/Mics: Laboratory Tests 05/25/17 0628: Anion Gap 11, Estimated GFR 50 L, BUN/Creatinine Ratio 14.5, CBC w Diff NO MAN DIFF REQ, RBC 4.86, MCV 81.7, MCH 26.0 L, MCHC 31.8 L, RDW 17.4 H, MPV 8.1, Gran % 71.7, Lymphocytes % 16.5 L, Monocytes % 8.6, Eosinophils % 2.9, Basophils % 0.3, Absolute Granulocytes 4.5, Absolute Lymphocytes 1.0 L, Absolute Monocytes 0.5, Absolute Eosinophils 0.2, Absolute Basophils 0 Assessment/Plan Assessment: 67 yo morbidly obese F with h/o HTN, T2DM, Afib on Pradaxa, chronic HfrEF, MUSHTAQ noncompliant with CPAP, ?asthma, presented to the ER for evaluation of bleeding from the dorsum of her foot after she tried to use a callus michelle. In the ER, bleeding was controlled with surgicel and pressure dressing. However, patient was notably dyspneic and dropped her sats to 88% on RA on ambulation, hence further evaluation was done. She was admitted to ICU as tele hold for management of acute on chronic heart failure. Vitals: afebrile, HR 90-110's, BP 143/96, sats 96% RA --> 88% RA on ambulation, 87-88% RA while sleeping placed on 2L. Labs: no leukocytosis, D-dimer 261, Na 148, bicarb 31, glucose 105, trop neg, proBNP 1900, TSH and free T4 normal. CXR: cardiomegaly, pulmonary venous congestion and interstitial edema in lower lungs. EKG: afib @ 108, Qtc 494. Echo (2015): EF 45-50%, mild left ventricular dilatation, mild to moderate MR, mild TR, RVSP 49 mmHg. Assessment and plan: 1. Acute hypoxic respiratory failure seems multifactorial from a combination of heart failure, pulmonary hypertension, sleep apnea and possible OHS. 2. Acute exacerbation of chronic HfrEF 2/2 medication and dietary noncompliance 3. MUSHTAQ noncompliant with CPAP 4. Pulmonary hypertension, mild to moderate mitral regurgitation 5. Possible underlying obesity hypoventilation syndrome 6. Chronic Afib on pradaxa 7. Traumatic bleeding while on anticoagulants bleeding controlled 8. Type 2 diabetes and essential hypertension Overnight: patient was in A. fib with rate 87-92. Her vitals were stable and she is saturating 93% on room air. She continues to have some feelings of shortness of breath but has a clear chest. Still has 2+ pitting edema. She still has a bandage around her left foot. Last night the patient had cystoscopy with Dr. Nguyen. It was done for hematuria and showed no stone and no tumor. Renal ultrasound showed a normal right kidney that was not able to visualize the left. KUB x-ray showed cholelithiasis with no definite nephrolithiasis. Plan 1. Acute exacerbation of chronic heart failure with reduced ejection fraction she has history of heart failure with reduced ejection fraction. Patient is supposed to take Lasix 40 mg and hydrochlorothiazide 25 daily. However patient has not been taking her medications for last 2 weeks. Patient also reports weight gain for last few months from dietary noncompliance. Patient presented with worsening shortness of breath, orthopnea, paroxysmal nocturnal dyspnea, weight gain, hypoxic requiring oxygen supplementation. CXR showed cardiomegaly, pulmonary venous congestion and interstitial edema in lower lungs. Acute exacerbation of chronic heart failure from dietary noncompliance, medication noncompliance. * Admit to telemetry * Continuous telemetry monitoring * Monitor vitals every shift * Continue patient on 40 mg Lasix by mouth daily * Daily ins and outs * Strict weights * 2 g sodium restriction diet * Echocardiogram showed no obvious regional wall motion abnormalities. Left ventricular ejection fraction is estimated at 55 % * Forest Nursery Supervisor on board * Continue hydrochlorothiazide 25 mg daily * Monitor electrolytes and replete accordingly * Serial troponins and EKGs negative for ACS Acute hypoxic respiratory failure seems multifactorial from a combination of heart failure, pulmonary hypertension, sleep apnea and possible OHS. patient was notably dyspneic and dropped her sats to 88% on RA on ambulation, hence further evaluation was done. Patient has chronic baseline dyspnea, but according to family, dyspnea has gradually progressed over past 3-6 months, worse on exertion (taking few steps at home) and even during a normal conversation. Patient reports orthopnea and PND. She denies cough, fever, chills , chest pain or palpitations. * Hypoxic respiratory failure requiring 2 L oxygen supplementation most likely multifactorial from combination of acute on chronic heart failure, pulmonary hypertension, obstructive sleep apnea, OHS. * Monitor vitals every shift * Provide oxygen supplementation to maintain saturation above 90 * Provide referral for sleep study and freight caller MUSHTAQ She is supposed to use her CPAP machine but is unable to tolerate it and machine was pricey despite insurance so she stopped using it. She was seeing Dr. Cox (Pulm at [place]) who diagnosed her with asthma but patient did not follow up since. * CPAP at nighttime * Patient is requesting for a new pulmonology referral for outpatient follow-up and sleep study * Patient is willing to see Dr. Feliz as an outpatient * Will provide pulmonary referral at the time of discharge HEMATURIA Patient has been having blood in urine for past 24 hours. Of note catheter was removed on 05/23/2017. She denies any traumatic catheterization. She denies any pain during urination, frequency, urgency, lower abdomen pain, bilateral flank pain. No CVA tenderness. Off note patient is on anticoagulation pradaxa for atrial fibrillation. * Urologist found nothing on cystoscopy * Hematuria has lessened Chronic atrial fibrillation- continue Pradaxa 150 twice daily and metoprolol 100 twice a day COPD continue TRC nebs Hyperlipidemia continue Lipitor 20 daily hypertension continue lisinopril 20 twice a day Diabetes mellitus please hold metformin, Accu-Cheks, NovoLog sliding scale was ordered Chronic venous stasis LE: b/l 2++ pitting pedal edema extending up into the thigh and abdomen, chronic venous stasis skin changes with chronic wounds, no evidence of cellulitis. * Wound care consulted * Daily dressings Fungal rash Continue cyclopirox and hydrocortisone for local tinea fungal infection under bilateral breast as prescribed by Warehouse Supervisor SHAYLA Patient was admitted with a creatinine of 0.8 and today it is in 1.1. * Follow-up creatinine tomorrow morning and alternate doses of lisinopril and Lasix as needed. * Diet: Heart Healthy. * DVT Prophylaxis: On Pradaxa * Code: Full Code Problem List: 1. CHF (congestive heart failure) Pain Ratin Pain Location: na Pain Goal: Remain pain free Pain Plan: na Tomorrow's Labs & Rationales: bep for cr Say Amin 05/25/17 1223: Attending MD Review Statement Attending Statement Attending MD Statement: examined this patient, discuss w/resident/PA/EBD SPECIAL EDUCATION TEACHER, agreed w/resident/PA/EBD SPECIAL EDUCATION TEACHER, discussed with family, reviewed EMR data (avail), discussed with nursing, discussed with case mgmt, reviewed images, amended to note Attending Assessment/Plan: 67 o/f admitted with Acute hypoxic respiratory failure seems multifactorial from a combination of heart failure, pulmonary hypertension, sleep apnea and possible OHS. Acute exacerbation of chronic HfrEF 2/2 medication and dietary noncompliance. MUSHTAQ noncompliant with CPAP. Pulmonary hypertension, mild to moderate mitral regurgitation. Chronic Afib on pradaxa. Patient transferred to telemetry. Patient denies any new complaints. Still have b/l lower rxtrmeity swelling but with skin wrinkles. Hematuria underwnet cystoscopy no bladder mass/no stone, resume pradaxa. h/h stable. afib rate controlled, on pradaxa Mild renal insufficiency, f/u cardiology. Monitor creatinine. CHF with improvemnet in breathing. Discharge planing as creatinie stable, possible weekend, has home services. MUSHTAQ on CPAP.
[2017-05-25 14:38] VITALS: BP 90/62
[2017-05-25 22:45] VITALS: BP 120/76
[2017-05-26 07:19] VITALS: BP 130/84
--- NOTE | 2017-05-26 08:54 | PN- Housestaff ---
Elijah KIMBALL,[place] 05/26/17 0854: Subjective Follow-up For: Acute exacerbation of chronic HfrEF 2/2 medication and dietary noncompliance MUSHTAQ noncompliant with CPAP Pulmonary hypertension, mild to moderate mitral regurgitation Possible underlying Obesity hypoventilation syndrome Chronic Afib on pradaxa Hematuria Tele-Events Since Last Visit: A. fib HR 80s90s Subjective: Patient was seen and examined at bedside. She was resting comfortably. She had no acute events overnight. Her hematuria is improving, now light pink. She continues to have dysuria although that is also improving. She has some pain of her distal right lower extremity, this is also improving. She denies any chest pain, shortness of breath, nausea, vomiting, fever, chills. Review of Systems Constitutional: Reports: no symptoms. Cardiovascular: Denies: chest pain, palpitations. Respiratory: Denies: cough, short of breath. Gastrointestinal: Reports: no symptoms. Genitourinary: Reports: see HPI, dysuria, hematuria. Musculoskeletal: Reports: no symptoms. Objective Last 24 Hrs of Vital Signs/I&O Vital Signs Date Time Temp Pulse Resp B/P B/P Pulse O2 O2 Flow FiO2 Mean Ox Delivery Rate 05/26 0719 98.5 71 21 130/84 88 05/25 2245 98.0 104 21 120/76 92 05/25 2040 101 98/72 05/25 2040 101 98/72 05/25 1438 97.4 82 22 90/62 92 Room Air Intake & Output 05/26 1600 05/26 0800 05/26 0000 Intake Total 100 100 Output Total 550 Balance 100 -450 Intake, Oral 100 100 Output, Urine 550 Patient 309 lb Weight Physical Exam General Appearance: Alert, Oriented X3, Cooperative, No Acute Distress Sepsis Skin Exam (color): Normal for Ethnicity Cardiovascular: Regular Rate, Normal S1, Normal S2, irregularly irregular rhythm Lungs: diminished breath sounds secondary to body habitus Abdomen: Normal Bowel Sounds, Soft, No Tenderness Neurological: Normal Speech, Normal Tone, Sensation Intact Extremities: Distal LEs wrapped in KALYANI, 2+ BLE edema Current Medications: Current Medications Sig/Dolly Start time Last Medication Dose Route Stop Time Status Admin Acetaminophen 650 MG Q6P PRN 05/20 2130 AC 05/24 PO 2000 Albuterol Sulfate 2 PUF Q4P PRN 05/21 0900 AC INH Atorvastatin Calcium 20 MG QPM 05/21 2100 AC 05/25 PO 2039 Calcium Carbonate 500 MG ONCE ONE 05/25 2044 DC 05/25 PO 05/25 Dabigatran 150 MG BID 05/21 899 AC 05/25 PO 2040 Furosemide 40 MG DAILY 05/22 0900 AC 05/25 PO 0843 Hydrochlorothiazide 25 MG DAILY 05/21 09 AC 05/25 PO 0842 Insulin Aspart 0 TIDAC 05/21 1200 AC 05/21 SC 1223 Ketoconazole 1 OLGA BID 05/21 09 AC 05/25 TOP 2040 Lisinopril 20 MG BID 05/21 09 AC 05/25 PO 2039 Metoprolol Tartrate 100 MG BID 05/21 899 AC 05/25 PO 2039 Assessment/Plan Assessment: 67 yo morbidly obese F with h/o HTN, T2DM, Afib on Pradaxa, chronic HfrEF, MUSHTAQ noncompliant with CPAP, ?asthma, presented to the ER for evaluation of bleeding from the dorsum of her foot after she tried to use a callus michelle. In the ER, bleeding was controlled with surgicel and pressure dressing. However, patient was notably dyspneic and dropped her sats to 88% on RA on ambulation, hence further evaluation was done. She was admitted to ICU as tele hold for management of acute on chronic heart failure. 1. Acute hypoxic respiratory failure seems multifactorial from a combination of heart failure, pulmonary hypertension, sleep apnea and possible OHS. 2. Acute exacerbation of chronic HfrEF 2/2 medication and dietary noncompliance 3. MUSHTAQ noncompliant with CPAP 4. Pulmonary hypertension, mild to moderate mitral regurgitation 5. Possible underlying obesity hypoventilation syndrome 6. Chronic Afib on pradaxa 7. Traumatic bleeding while on anticoagulants bleeding controlled 8. Type 2 diabetes and essential hypertension Plan Patient was initially scheduled for discharge today, however her home is not fit to live and currently, per her family. While the initial plan was to send her to a hotel patient is refusing that and they're requesting STR 1. Acute exacerbation of chronic heart failure with reduced ejection fraction she has history of heart failure with reduced ejection fraction. Patient is supposed to take Lasix 40 mg and hydrochlorothiazide 25 daily. However patient has not been taking her medications for last 2 weeks. Patient also reports weight gain for last few months from dietary noncompliance. Patient presented with worsening shortness of breath, orthopnea, paroxysmal nocturnal dyspnea, weight gain, hypoxic requiring oxygen supplementation. CXR showed cardiomegaly, pulmonary venous congestion and interstitial edema in lower lungs. Acute exacerbation of chronic heart failure from dietary noncompliance, medication noncompliance. * Admit to telemetry * Continuous telemetry monitoring * Monitor vitals every shift * Continue patient on 40 mg Lasix by mouth daily * Daily ins and outs * Strict weights * 2 g sodium restriction diet * Echocardiogram showed no obvious regional wall motion abnormalities. 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 patient was notably dyspneic and dropped her sats to 88% on RA on ambulation, hence further evaluation was done. Patient has chronic baseline dyspnea, but according to family, dyspnea has gradually progressed over past 3-6 months, worse on exertion (taking few steps at home) and even during a normal conversation. Patient reports orthopnea and PND. She denies cough, fever, chills , chest pain or palpitations. * Hypoxic respiratory failure most likely multifactorial from combination of acute on chronic heart failure, pulmonary hypertension, obstructive sleep apnea, OHS. * Now on room air, desaturated last night to 88%, now saturating in the high 90s * Monitor vitals every shift * Provide referral for sleep study and architectural examiner MUSHTAQ She is supposed to use her CPAP machine but is unable to tolerate it and machine was pricey despite insurance so she stopped using it. She was seeing Dr. Cox (Pulm at [place]) who diagnosed her with asthma but patient did not follow up since. * CPAP at nighttime * Patient is requesting for a new pulmonology referral for outpatient follow-up and sleep study * Patient is willing to see Dr. Feliz as an outpatient * Will provide pulmonary referral at the time of discharge HEMATURIA Patient has been having blood in urine for past 24 hours. Of note catheter was removed on 05/23/2017. She denies any traumatic catheterization. She denies any pain during urination, frequency, urgency, lower abdomen pain, bilateral flank pain. No CVA tenderness. Off note patient is on anticoagulation pradaxa for atrial fibrillation. * Urologist found nothing on cystoscopy * Hematuria continues to improve * Also started on oxybutynin for dysuria Chronic atrial fibrillation- continue Pradaxa 150 twice daily and metoprolol 100 twice a day COPD continue TRC nebs Hyperlipidemia continue Lipitor 20 daily hypertension continue lisinopril 20 twice a day Diabetes mellitus please hold metformin, Accu-Cheks, NovoLog sliding scale was ordered * Dietary counseling was given at bedside per patient's request Chronic venous stasis LE: b/l 2++ pitting pedal edema extending up into the thigh and abdomen, chronic venous stasis skin changes with chronic wounds, no evidence of cellulitis. * Wound care consulted * Daily dressings Fungal rash Continue cyclopirox and hydrocortisone for local tinea fungal infection under bilateral breast as prescribed by Process Development Engineer SHAYLA Patient was admitted with a creatinine of 0.8 and today it is in 1.2. * Decreased Lasix dose to 20 mg daily * Follow-up BEP for creatinine levels daily * Diet: Heart Healthy. * DVT Prophylaxis: On Pradaxa * Code: Full Code Problem List: 1. CHF (congestive heart failure) 2. Obesity Pain Ratin Pain Location: RLE Pain Goal: Pain 4 or less Pain Plan: pain pathway Tomorrow's Labs & Rationales: cbc, bep Say Amin 05/26/17 1318: Attending MD Review Statement Attending Statement Attending MD Statement: examined this patient, discuss w/resident/PA/ULTRASONIC HAND SOLDERER, agreed w/resident/PA/ULTRASONIC HAND SOLDERER, discussed with family, reviewed EMR data (avail), discussed with nursing, discussed with case mgmt, reviewed images, amended to note Attending Assessment/Plan: 67 o/f admitted with Acute hypoxic respiratory failure seems multifactorial from a combination of heart failure, pulmonary hypertension, sleep apnea and possible OHS. Acute exacerbation of chronic HfrEF 2/2 medication and dietary noncompliance. MUSHTAQ noncompliant with CPAP. Pulmonary hypertension, mild to moderate mitral regurgitation. Chronic Afib on pradaxa. Patient c/o urinary incontinence and hematuira in past 24 hrs. She also c/o "stabbing pain in her urine". Patient underwnet cystoscopy no bladder mass/no stone, resumed pradaxa. h/h stable. afib rate controlled, on pradaxa Mild renal insufficiency with stabilisation on lasix 40 mg daily, f/u cardiology. Monitor creatinine. CHF with improvemnet in breathing. Discharge planing as creatinine stable, has home services. MUSHTAQ on CPAP. Urinary incontinence: Add oxybutynin, Voiding exercises. Diapers for hygiene. ( difficult scenario to stop diuretics as she had propensity to go into CHF), Provide nursing education.
[2017-05-26] MEDS ORDERED: LASIX20 M1 PO (09:57)
[2017-05-26 15:00] VITALS: BP 126/70
[2017-05-26 23:09] VITALS: BP 130/70
[2017-05-27 06:24] VITALS: BP 102/64
[2017-05-27 08:17] LABS: ABSOLUTE BASOPHIL COUNT 0 /CUMM (0.0-0.2); ABSOLUTE EOSINOPHIL COUNT 0.3 /CUMM (0.0-0.7); ABSOLUTE GRANULOCYTE CT 4.7 /CUMM (1.4-6.5); ABSOLUTE LYMPH COUNT 1.2 /CUMM (1.2-3.4); ABSOLUTE MONOCYTE COUNT 0.7 /CUMM (0.10-0.60); BASOPHIL % 0.2 % (0.0-2.0); EOSINOPHIL % 4.6 % (0-5); GRANULOCYTE % 68.1 % (42.2-75.2); HEMATOCRIT 41.4 % (37-47); MEAN CORPUSCULAR HGB 25.9 PG (27.0-31.0); MEAN CORPUSCULAR HGB CONC 31.9 G/DL (33.0-37.0); MEAN CORPUSCULAR VOLUME 81.2 FL (81.0-99.0); MEAN PLATELET VOLUME 8.5 FL (7.4-10.4); PLATELET COUNT 290 /CUMM (130-400); RBC DISTRIBUTION WIDTH 16.7 % (11.5-14.5); WHITE BLOOD CELL COUNT 6.9 /CUMM (4.8-10.8)
[2017-05-27 14:02] VITALS: BP 116/64
[2017-05-27] MEDS ORDERED: LASIX20 M1 PO (14:36)
[2017-05-27] MEDS ORDERED: BREO ELLIPTA 21 EACH INH (14:49)
--- NOTE | 2017-05-27 15:35 | PN- Housestaff ---
Soheila KIMBALL,Sofia 05/27/17 1535: Subjective Follow-up For: Acute exacerbation of chronic HfrEF 2/2 medication and dietary noncompliance MUSHTAQ noncompliant with CPAP Pulmonary hypertension, mild to moderate mitral regurgitation Possible underlying Obesity hypoventilation syndrome Chronic Afib on pradaxa Hematuria Subjective: Patient still has pain in the lower legs which are bandaged. Review of Systems Constitutional: Reports: no symptoms. Objective Last 24 Hrs of Vital Signs/I&O Vital Signs Date Time Temp Pulse Resp B/P B/P Pulse O2 O2 Flow FiO2 Mean Ox Delivery Rate 05/27 1402 97.1 87 20 116/64 94 Room Air 05/27 1026 102/64 05/27 1025 102/64 05/27 0800 Room Air 05/27 0624 97.4 69 20 102/64 94 Room Air 05/27 0000 Room Air Room Air 05/26 2309 97.9 73 20 130/70 97 Room Air Intake & Output 05/27 1600 05/27 0800 05/27 0000 Intake Total 100 150 Output Total 1650 300 300 Balance -1650 -200 -150 Intake, Oral 100 150 Number 1 Bowel Movements Output, Urine 1650 300 300 Patient 305 lb Weight Weight Bed scale Measurement Method Physical Exam General Appearance: Alert, Oriented X3, Cooperative, No Acute Distress Assessment/Plan Assessment: 67 yo morbidly obese F with h/o HTN, T2DM, Afib on Pradaxa, chronic HfrEF, MUSHTAQ noncompliant with CPAP, ?asthma, presented to the ER for evaluation of bleeding from the dorsum of her foot after she tried to use a callus michelle. In the ER, bleeding was controlled with surgicel and pressure dressing. However, patient was notably dyspneic and dropped her sats to 88% on RA on ambulation, hence further evaluation was done. She was admitted to ICU as tele hold for management of acute on chronic heart failure. 1. Acute hypoxic respiratory failure seems multifactorial from a combination of heart failure, pulmonary hypertension, sleep apnea and possible OHS. 2. Acute exacerbation of chronic HfrEF 2/2 medication and dietary noncompliance 3. MUSHTAQ noncompliant with CPAP 4. Pulmonary hypertension, mild to moderate mitral regurgitation 5. Possible underlying obesity hypoventilation syndrome 6. Chronic Afib on pradaxa 7. Traumatic bleeding while on anticoagulants bleeding controlled 8. Type 2 diabetes and essential hypertension Plan Patient was initially scheduled for discharge today, however her home is not fit to live and currently, per her family. While the initial plan was to send her to a hotel patient is refusing that and they're requesting STR 1. Acute exacerbation of chronic heart failure with reduced ejection fraction she has history of heart failure with reduced ejection fraction. Patient is supposed to take Lasix 40 mg and hydrochlorothiazide 25 daily. However patient has not been taking her medications for last 2 weeks. Patient also reports weight gain for last few months from dietary noncompliance. Patient presented with worsening shortness of breath, orthopnea, paroxysmal nocturnal dyspnea, weight gain, hypoxic requiring oxygen supplementation. CXR showed cardiomegaly, pulmonary venous congestion and interstitial edema in lower lungs. Acute exacerbation of chronic heart failure from dietary noncompliance, medication noncompliance. * Admit to telemetry * Continuous telemetry monitoring * Monitor vitals every shift * Continue patient on 40 mg Lasix by mouth daily * Daily ins and outs * Strict weights * 2 g sodium restriction diet * Echocardiogram showed no obvious regional wall motion abnormalities. 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 patient was notably dyspneic and dropped her sats to 88% on RA on ambulation, hence further evaluation was done. Patient has chronic baseline dyspnea, but according to family, dyspnea has gradually progressed over past 3-6 months, worse on exertion (taking few steps at home) and even during a normal conversation. Patient reports orthopnea and PND. She denies cough, fever, chills , chest pain or palpitations. * Hypoxic respiratory failure most likely multifactorial from combination of acute on chronic heart failure, pulmonary hypertension, obstructive sleep apnea, OHS. * Now on room air, desaturated last night to 88%, now saturating in the high 90s * Monitor vitals every shift * Provide referral for sleep study and squeezer operator MUSHTAQ She is supposed to use her CPAP machine but is unable to tolerate it and machine was pricey despite insurance so she stopped using it. She was seeing Dr. Cox (Pulm at [place]) who diagnosed her with asthma but patient did not follow up since. * CPAP at nighttime * Patient is requesting for a new pulmonology referral for outpatient follow-up and sleep study * Patient is willing to see Dr. Feliz as an outpatient * Will provide pulmonary referral at the time of discharge HEMATURIA Patient has been having blood in urine for past 24 hours. Of note catheter was removed on 05/23/2017. She denies any traumatic catheterization. She denies any pain during urination, frequency, urgency, lower abdomen pain, bilateral flank pain. No CVA tenderness. Off note patient is on anticoagulation pradaxa for atrial fibrillation. * Urologist found nothing on cystoscopy * Hematuria continues to improve * Also started on oxybutynin for dysuria Chronic atrial fibrillation- continue Pradaxa 150 twice daily and metoprolol 100 twice a day COPD continue TRC nebs Hyperlipidemia continue Lipitor 20 daily hypertension continue lisinopril 20 twice a day Diabetes mellitus please hold metformin, Accu-Cheks, NovoLog sliding scale was ordered * Dietary counseling was given at bedside per patient's request Chronic venous stasis LE: b/l 2++ pitting pedal edema extending up into the thigh and abdomen, chronic venous stasis skin changes with chronic wounds, no evidence of cellulitis. * Wound care consulted * Daily dressings Fungal rash Continue cyclopirox and hydrocortisone for local tinea fungal infection under bilateral breast as prescribed by Edge Roller SHAYLA Patient was admitted with a creatinine of 0.8 and today it is in 1.2. * Decreased Lasix dose to 20 mg daily * Follow-up BEP for creatinine levels daily * Diet: Heart Healthy. * DVT Prophylaxis: On Pradaxa * Code: Full Code Problem List: 1. CHF (congestive heart failure) 2. Obstructive sleep apnea 3. Hypertension 4. Obesity 5. Hyperlipidemia 6. Diabetes 7. Atrial fibrillation with rapid ventricular response 8. Diastolic CHF Pain Ratin Pain Location: dysuria Pain Goal: Pain 4 or less Pain Plan: pyridium Tomorrow's Labs & Rationales: to be Say Jackson 05/27/17 1546: Attending MD Review Statement Attending Statement Attending MD Statement: examined this patient, discuss w/resident/PA/HAND SEWER SHOES, agreed w/resident/PA/HAND SEWER SHOES, discussed with family, reviewed EMR data (avail), discussed with nursing, discussed with case mgmt, reviewed images, amended to note Attending Assessment/Plan: 67 o/f admitted with Acute hypoxic respiratory failure seems multifactorial from a combination of heart failure, pulmonary hypertension, sleep apnea and possible OHS. Acute exacerbation of chronic HfrEF 2/2 medication and dietary noncompliance. MUSHTAQ noncompliant with CPAP. Pulmonary hypertension, mild to moderate mitral regurgitation. Chronic Afib on pradaxa. Patient c/o urinary incontinence with mild improvment. Patient underwnet cystoscopy no bladder mass/no stone, resumed pradaxa. h/h stable. afib rate controlled, on pradaxa Mild renal insufficiency with stabilisation on lasix 40 mg daily. CHF with improvemnet in breathing. MUSHTAQ on CPAP. Urinary incontinence: c/w oxybutynin, Voiding exercises. Diapers for hygiene. ( difficult scenario to stop diuretics as she had propensity to go into CHF), Provided nursing education. Patient medically stable for discharge.
[2017-05-27] MEDS ORDERED: PYRIDIUM200 M1 PO (16:03)
[2017-05-27] MEDS ORDERED: OXYBUTYNIN CHLO10 M1 PO (16:03)
== END 2017-05-27 17:10 | disposition home health service (06) | DRG 291 ==
LOC: ERH 15:11 → CRI 19:50 → ERHI 19:50 → ENRESERV 05-21 04:54 → CRI 05-21 07:01 → 1NO 05-24 18:15 → ENTRNSPT 05-24 18:49 → EDTRNSPT 05-24 18:56 → CMPTRNSPT 05-24 19:12 → 1NO 05-25 11:34 → ENPENDDIS 05-27 14:36 → 1NO 05-27 14:56 → ENTRNSPT 05-27 17:06 → 1NO 05-27 17:10 → EDTRNSPT 05-27 17:10 → EDTRNSPTSTS 05-27 17:10 → CMPTRNSPT 05-27 17:21
PROVIDERS: Dermatology; Hospitalist; Physician Assistant Medical; Student in an Organized Health Care Education/Training Program
PROC: 0TJB8ZZ Inspection of Bladder, Via Natural or Artificial Opening Endoscopic (ICD-10-PCS; principal; 2017-05-24)
DX: I11.0 Hypertensive heart disease with heart failure (principal); J96.01 Acute respiratory failure with hypoxia; I27.20 Pulmonary hypertension, unspecified; S91.311A Laceration without foreign body, right foot, initial encounter; Z68.43 Body mass index [BMI] 50.0-59.9, adult; E66.2 Morbid (severe) obesity with alveolar hypoventilation; I48.2 Chronic atrial fibrillation; I42.8 Other cardiomyopathies; B36.8 Other specified superficial mycoses; I50.23 Acute on chronic systolic (congestive) heart failure; Z79.01 Long term (current) use of anticoagulants; R31.0 Gross hematuria; E78.5 Hyperlipidemia, unspecified; W45.8XXA Other foreign body or object entering through skin, initial encounter; R32 Unspecified urinary incontinence; I34.0 Nonrheumatic mitral (valve) insufficiency; I87.2 Venous insufficiency (chronic) (peripheral); Z91.11 Patient's noncompliance with dietary regimen; Z91.14 Patient's other noncompliance with medication regimen; T45.515A Adverse effect of anticoagulants, initial encounter; Y92.009 Unspecified place in unspecified non-institutional (private) residence as the place of occurrence of the external cause; Z87.891 Personal history of nicotine dependence; Z79.84 Long term (current) use of oral hypoglycemic drugs
CPT/HCPCS: 1NSP; CCU; ERO; 36592; 71045; 74018; 76775; 81001; 82436; 87086; 93005; 93010; 96374; 97116-GO; 97161-GP; 97530-GO; C8929; J1940; J3490; Q9957